=== PATIENT | male | born 1965 | race Caucasian/White ===

== ENCOUNTER 2016-07-16 09:45 | Emergency (ER) | payer OTHER ==
[2016-07-16 10:08] VITALS: TEMP 97.6; BMI 27.8
[2016-07-16] MEDS ORDERED: chlordiazePOXIDE HCL 25 MG CAPSULE PO ONE (10:12)
[2016-07-16] MEDS ORDERED: SODIUM CHLORIDE 1,000 ML IV ONE (10:12)
[2016-07-16] MEDS ORDERED: chlordiazePOXIDE HCL 25 MG CAPSULE ONE (10:18)
--- NOTE | 2016-07-16 10:19 | PDOC ---
History of Present Illness - General Chief Complaint: Substance Abuse Stated Complaint: ALCOHOL WITHDRAWAL Time Seen by Provider: 07/16/16 09:56 History Source: Patient Exam Limitations: No Limitations - History of Present Illness Initial Comments: 07/16/16 10:13 51y M hx of hl,htn, etoh abuse presents with feeling 'edgy' and palpitations since last night. pt states since last night, he has been feeling alittle edgy and anxious, associated with mild palpitations. he went to his neighbor for help who called EMS. The patient deniese any cp, dizziness, sob, abd pain, back pain, leg swelling. pt does endorse having a cough every morning he attributes to his sinuses that clears up after he coughs once or twice. Pt states he coughed once and vomited this morning which sometimes happens - he denies any nausea currently. Pt states he typically drinks 1-2pts vodka daily, and yesterday he had about 1/2-1pt. This morning he thought his edgyness/palps were due to etoh so he drank a few shots, but states it didnt help him very much. pt denies any hematemesis, urinary symptoms, diarrhea, melena, bpr, ROE. pt declines detox pt denies drinking any other recreational drugs p[facility] Past History - Past Medical History Allergies/Adverse Reactions: Allergies Allergy/AdvReac Type Severity Reaction Status Date / Time halothane Allergy Unknown Verified 07/16/16 09:58 Home Medications: Ambulatory Orders Atorvastatin Ca [Lipitor] 10 mg PO DAILY 02/16/14 Carvedilol [Coreg -] 25 mg PO DAILY 02/16/14 Cetirizine HCl [Zyrtec -] 10 mg PO DAILY PRN 02/16/14 Anemia: No Asthma: No Cancer: No Cardiac Disorders: No CVA: No COPD: No CHF: No Dementia: No Diabetes: No GI Disorders: Yes Disorders: Yes HTN: Yes Hypercholesterolemia: Yes Kidney Stones: No Liver Disease: No Psychiatric Problems: Yes (CHRONIC ALCOHOLISM) Suicide Attempt (Hx): No Seizures: No Thyroid Disease: No - Surgical History Abdominal Surgery: Yes (german hernia repair x 2 ) Appendectomy: No Cardiac Surgery: No Cholecystectomy: No Lung Surgery: No Neurologic Surgery: No Orthopedic Surgery: No - Reproductive History Testicular Surgery: No - Psycho/Social/Smoking Cessation Hx Anxiety: Yes Suicidal Ideation: No Smoking History: Current every day smoker Have you smoked in the past 12 months: Yes Number of Cigarettes Smoked Daily: 20 Cigars Per Day: 0 Information on smoking cessation initiated: Yes 'Breaking Loose' booklet given: 03/23/14 Hx Alcohol Use: Yes Drug/Substance Use Hx: No Substance Use Type: Alcohol Hx Substance Use Treatment: No Review of Systems - Review of Systems Able to Perform ROS?: Yes Comments:: 07/16/16 10:16 Constitutional - no reported Fever, Chills, weakness, HEENT: no reported vision changes, sore throat Respiratory: +cough no reported sob, hemoptysis Cardiac: + palpitations, no reported chest pain, light headedness, leg swelling Abd/GI: +vomited no reported abd pain, nausea, blood per rectum, melena, diarrhea : no reported dysuria, frequency, discharge Musculskelatal - no reported back pain, joint swelling skin - no reported bruising, erythema, rash neurological: no reported headache, numbness, focal weakness, tingling, ataxia, weakness hematologic: no reported anemia, easy bruising, easy bleeding *Physical Exam - Vital Signs Last Vital Signs Temp Pulse Resp BP Pulse Ox 97.6 F 105 H 16 156/95 97 07/16/16 09:55 07/16/16 09:55 07/16/16 09:55 07/16/16 09:55 07/16/16 09:55 - Physical Exam Comments: 07/16/16 10:17 GENERAL: The patient is awake, alert, and fully oriented, Nontoxic - in no acute distress. HEAD: Normocephalic, atraumatic. EYES: extraocular movements intact, sclera anicteric, conjunctiva clear. scar over L eye with mild ptosis (chronic for patient) ENT: Normal voice, minimal tongue fasciulations NECK: Normal range of motion, supple LUNGS: Breath sounds equal, clear to auscultation bilaterally. No wheezes, no rhonchi, no rales. HEART: slightly tachycardic, normal S1 and S2 without murmur, rub or gallop. ABDOMEN: Soft, nontender, normoactive bowel sounds. No guarding, no rebound. . No CVA tenderness EXTREMITIES: Normal range of motion, no edema. No clubbing or cyanosis. No cords, erythema, or tenderness. NEUROLOGICAL: No facial assymetry, Normal speech, moving all 4 extremities spontaneously and symmetrically PSYCH: Normal mood, normal affect. SKIN: Warm, Dry, normal turgor, Heart Score/ECG Review - ECG Impressions Comment:: 07/16/16 11:57 Twelve-lead EKG was performed and reviewed by me. There is normal sinus rhythm with a normal rate. rate of 76 Incomplete RBBB There is abnormal R wave progression q waves in inferior leads ED Treatment Course - LABORATORY CBC & Chemistry Diagram: 07/16/16 10:25 07/16/16 10:25 - RADIOLOGY Radiology Studies Ordered: Category Date Time Status CHEST PA & LAT [RAD] Stat Radiology 07/16/16 10:12 Ordered Medical Decision Making - Medical Decision Making 07/16/16 10:18 51y M hx of htn, hl, etoh abuse presents feeling anxous with palpitations, some coughing this morning which is chronic for the patient and 1 episode of post tuffive emesis without any cp, abd pain, current nausea. pts vitals noted for mild tachycardia and pt has minimal tongue fasiculations suspect possible early withdrawal will give librium will give fluisds will ck cbc cmp ekg, to r/o anemia, metabolic dernagement, arrythmia cxr to r/o pna 07/16/16 12:23 labs reviewed noted for mildly low mag -= was repleted cxr negative for acute infiltrate pts HR improved currently without signs of withdrawl pt again declines detox will d/c the pt to fu with his pmd return precautions were discussed I discussed the physical exam findings, ancillary test results and final diagnoses with the patient. I answered all of the patient's questions. The patient was satisfied with the care received and felt comfortable with the discharge plan and treatment plan. The patient will call their primary care physician within 24 hours to arrange follow-up and will return to the Emergency Department with any new, persistent or worsening symptoms. *DC/Admit/Observation/Transfer Diagnosis at time of Disposition: Hypomagnesemia Chronic alcoholism Qualifiers: Substance use status: uncomplicated Qualified Code(s): F10.20 - Alcohol dependence, uncomplicated - Discharge Dispostion Disposition: HOME Condition at time of disposition: Improved Admit: No - Referrals Referrals: Lawrence Soria MD [Primary Care Provider] - - Patient Instructions Printed Discharge Instructions: DI for Alcohol Abuse Additional Instructions: Return to the emergency department immediately with ANY new, persistent or worsening symptoms. Make sure you are eating regularly If you are interested in alcohol detox, you may contact: for more details You MUST call and follow up with your doctor within 2-3 days for further evaluation of your symptoms. Results were discussed with you. Please make sure your doctor reviews the results of your emergency evaluation. Print Language: KIS[place]HILI
[2016-07-16 10:53] LABS: BASOPHIL 2.7 % (0-2.0); EOSINOPHIL 2.8 % (0-4.5); MCH 32.8 pg (25.7-33.7); MCHC 34.7 g/dl (32.0-35.9); MEAN CELL VOLUME 94.4 fl (80-96); MEAN PLT VOLUME 8.9 fl (7.5-11.1); NEUTROPHILS 70.8 % (42.8-82.8); PLATELET COUNT 140 K/MM3 (134-434); RDW 13.5 % (11.9-15.9); WHITE BLOOD COUNT 6.4 K/mm3 (4.0-10.0)
[2016-07-16 10:58] LABS: INR 1.01 (0.82-1.09); PROTHROMBIN TIME (PATIENT) 11.3 SEC (10.2-13.0)
[2016-07-16 11:02] LABS: ALBUMIN 4.4 g/dl (3.5-5.0); ALK PHOS 85 U/L (32-92); ANION GAP 14 (8-16); CALCIUM 9.7 mg/dl (8.4-10.2); CO2 24 mmol/L (22-28); CREATININE 0.9 mg/dl (0.6-1.3); GLUCOSE,RANDOM 118 mg/dl (74-106); MAGNESIUM 1.6 mg/dL (1.8-2.4); SGOT/AST 89 U/L (10-42); SGPT/ALT 128 U/L (10-40); TOT PROT 7.1 g/dl (6.4-8.3)
[2016-07-16] MEDS ORDERED: MAGNESIUM SULF 50% (8.12 MEQ/2 ML-1 GM VIAL) IVPB ONE (11:09)
[2016-07-16 13:25] VITALS: BP 132/90; PULSE 75
--- NOTE | 2016-07-16 18:40 | EKG ---
Test Reason : Blood Pressure : / mmHG Vent. Rate : 076 BPM Atrial Rate : 076 BPM P-R Int : 152 ms QRS Dur : 098 ms QT Int : 380 ms P-R-T Axes : 051 -21 033 degrees QTc Int : 427 ms NORMAL SINUS RHYTHM INCOMPLETE RIGHT BUNDLE BRANCH BLOCK INFERIOR INFARCT , AGE UNDETERMINED ABNORMAL ECG NO PREVIOUS ECGS AVAILABLE Confirmed by ANDREA HANSEN MD ([id number]) on 07/16/2016 6:40:09 PM Referred By: LORENZA Confirmed By:ANDREA HANSEN MD
== END 2016-07-16 13:24 | disposition home or self-care (01) ==
LOC: FER 09:45
PROC: 3E033GC Introduction of Other Therapeutic Substance into Peripheral Vein, Percutaneous Approach (ICD-10-PCS; principal; 2016-07-16)
PROC: 3E0337Z Introduction of Electrolytic and Water Balance Substance into Peripheral Vein, Percutaneous Approach (ICD-10-PCS; 2016-07-16)
DX: E83.42 Hypomagnesemia (principal); F10.20 Alcohol dependence, uncomplicated; I10 Essential (primary) hypertension; E78.00 Pure hypercholesterolemia, unspecified; F17.210 Nicotine dependence, cigarettes, uncomplicated
CPT/HCPCS: 36415; 71020-TC; 80053; 83735; 85025; 85610; 93005; 96361; 96374; 99285-25

== ENCOUNTER 2016-07-29 13:31 | Inpatient (IN) | payer OTHER ==
[2016-07-29 14:32] VITALS: BMI 27.6
--- NOTE | 2016-07-29 17:31 | HP ---
CIWA Score - CIWA Score Nausea/Vomitin Muscle Tremors: 4-Moderate,w/Arms Extend Anxiety: 4-Mod. Anxious/Guarded Agitation: 4-Moderately Restless Paroxysmal Sweats: 3 Orientation: 0-Oriented Tacttile Disturbances: 0-None Auditory Disturbances: 0-None Visual Disturbances: 0-None Headache: 0-None Present CIWA-Ar Total Score: 17 Admission ROS BHS - HPI Chief Complaint: Withdrawal sx. Allergies/Adverse Reactions: Allergies Allergy/AdvReac Type Severity Reaction Status Date / Time halothane Allergy Unknown Verified 07/29/16 16:39 History of Present Illness: 51 y/o man with a long hx. of alcoholism is admitted for detox. Pt. has been in previous detox,reports 1 1/2 yr. sober. Exam Limitations: No Limitations - Ebola screening Have you traveled outside of the country in the last 21 days: No Have you had contact with anyone from an Ebola affected area: No Have you been sick,other than usual withdrawal symptoms: No Do you have a fever: No - Review of Systems Constitutional: No Symptoms Reported EENT: reports: No Symptoms Reported Respiratory: reports: Cough Cardiac: reports: No Symptoms Reported GI: reports: Nausea, Abdominal cramping : reports: No Symptoms Reported Musculoskeletal: reports: No Symptoms Reported Integumentary: reports: Sweating Neuro: reports: Tremors Endocrine: reports: No Symptoms Reported Hematology: reports: No Symptoms Reported Psychiatric: reports: No Sypmtoms Reported Other Systems: Reviewed and Negative Patient History - Patient Medical History Hx Anemia: No Hx Asthma: No Hx Chronic Obstructive Pulmonary Disease (COPD): No Hx Cancer: No Hx Cardiac Disorders: No Hx Congestive Heart Failure: No Hx Hypertension: Yes (on coreg) Hx Hypercholesterolemia: Yes (atorvastatin ) Hx Pacemaker: No HX Cerebrovascular Accident: No Hx Seizures: No Hx Dementia: No Hx Diabetes: No Hx Gastrointestinal Disorders: Yes (acid reflux) Hx Liver Disease: No Hx Genitourinary Disorders: No Hx Sexually Transmitted Disorders: No Hx Renal Disease (ESRD): No Hx Thyroid Disease: No Hx Human Immunodeficiency Virus (HIV): No Hx Hepatitis C: No Hx Depression: No Hx Suicide Attempt: No Hx Bipolar Disorder: No Hx Schizophrenia: No - Patient Surgical History Past Surgical History: Yes Hx Neurologic Surgery: No Hx Cataract Extraction: No Hx Cardiac Surgery: No Hx Lung Surgery: No Hx Breast Surgery: No Hx Breast Biopsy: No Hx Abdominal Surgery: Yes (german hernia repair x 4- last 20) Hx Appendectomy: No Hx Cholecystectomy: No Hx Genitourinary Surgery: No Hx Section: No Hx Orthopedic Surgery: No Hx Hysterectomy: No Other Surgical History: left eye surgery at 5yrs Anesthesia Reaction: Yes (Halothane) - PPD History Previous Implant?: Yes Documented Results: Negative w/proof Implanted On Prior [facility] Admission?: Yes Date: 02/18/14 Results: 0 mm PPD to be Administered?: Yes - Smoking Cessation Smoking history: Current every day smoker Have you smoked in the past 12 months: Yes Aproximately how many cigarettes per day: 20 Cigars Per Day: 0 Hx Chewing Tobacco Use: No Initiated information on smoking cessation: Yes 'Breaking Loose' booklet given: 07/29/16 - Substance & Tx. History Hx Alcohol Use: Yes Hx Substance Use: No Substance Use Type: Alcohol Hx Substance Use Treatment: Yes (Detox) - Substances Abused Alcohol Route: Oral Frequency: Daily Amount used: vodka- 2pts Age of first use: 21 Date of Last Use: 07/28/16 Admission Physical Exam BHS - Vital Signs Vital Signs: Vital Signs - 24 hr 07/29/16 14:28 Temperature 96.6 F L Pulse Rate 99 H Respiratory 20 Rate Blood Pressure 167/116 BHS Breath Alcohol Content Breath Alcohol Content: 0 Urine Drug Screen - Results Drug Screen Negative: No Urine Drug Screen Results: BZO-Benzodiazepines
[2016-07-29] MEDS ORDERED: MAGNESIUM CITRATE 300 ML BOTTLE PO PRN (17:42)
[2016-07-29] MEDS ORDERED: MAG HYDROX/AL HYDROX/SIMETH 30 ML UNIT-DOSE CUP PO PRN (17:42)
[2016-07-29] MEDS ORDERED: ACETAMINOPHEN 325 MG TABLET (FP) PO PRN (17:42)
[2016-07-29] MEDS ORDERED: MENTHOL/PHENOL 1 EACH UD MM PRN (17:42)
[2016-07-29] MEDS ORDERED: hydrOXYzine PAMOATE 50 MG CAPSULE (FP) PO PRN (17:42)
[2016-07-29] MEDS ORDERED: MAGNESIUM HYDROX 2400MG/30ML ORAL SUSPENSION 30 ML CUP PO PRN (17:42)
[2016-07-29] MEDS ORDERED: NICOTINE POLACRILEX 2 MG GUM BC PRN (17:42)
[2016-07-29] MEDS ORDERED: guaiFENesin/D-METHORPHAN HB 10 ML UNIT-DOSE CUPS PO PRN (17:42)
[2016-07-29] MEDS ORDERED: diphenhydrAMINE HCL 50 MG CAPSULE PO PRN (17:42)
[2016-07-29] MEDS ORDERED: LOPERAMIDE HCL 2 MG CAPSULE PO PRN (17:42)
[2016-07-29] MEDS ORDERED: P-EPHED 60MG/TRIPROLIDI 2.5MG TABLET PO PRN (17:42)
[2016-07-29] MEDS ORDERED: chlordiazePOXIDE HCL 25 MG CAPSULE PO ONE (17:42)
[2016-07-29] MEDS ORDERED: IBUPROFEN 400 MG TABLET (FP) PO PRN (17:42)
[2016-07-29] MEDS ORDERED: chlordiazePOXIDE HCL 25 MG CAPSULE PO PRN (17:42)
[2016-07-29] MEDS: NICOTINE 21 MG/24 HOURS TOPICAL PATCH TD SCH (19:20)
[2016-07-29] MEDS: THIAMINE HCL 100 MG TABLET (FP) PO SCH (22:18)
[2016-07-29] MEDS: chlordiazePOXIDE HCL 25 MG CAPSULE PO SCH (22:18)
[2016-07-29] MEDS: ATORVASTATIN CA 10 MG TABLET (FP) PO SCH (22:19)
[2016-07-29] MEDS: CARVEDILOL 25 MG TABLET (FP) PO SCH (22:19)
[2016-07-30] MEDS: chlordiazePOXIDE HCL 25 MG CAPSULE PO SCH ×4 (05:32→22:16)
[2016-07-30] MEDS: NICOTINE 21 MG/24 HOURS TOPICAL PATCH TD SCH (10:20)
[2016-07-30] MEDS: CARVEDILOL 25 MG TABLET (FP) PO SCH ×2 (10:20→22:17)
[2016-07-30] MEDS: PRENATAL VITAMINS W/ FOLIC ACID TABLET (FP) PO SCH (10:20)
[2016-07-30 10:36] LABS: ALK PHOS 112 U/L (45-117); BILIRUBIN,TOTAL 1.5 mg/dL (0.2-1.0); MCH 32.5 pg (25.7-33.7); MCHC 33.4 g/dl (32.0-35.9); MEAN CELL VOLUME 97.2 fl (80-96); MEAN PLT VOLUME 9.9 fl (7.5-11.1); PLATELET COUNT 125 K/MM3 (134-434); RDW 14.3 % (11.9-15.9); SGOT/AST 157 U/L (15-37); SGPT/ALT 157 U/L (12-78); TOT PROT 7.8 g/dl (6.4-8.2); WHITE BLOOD COUNT 6.2 K/mm3 (4.0-10.0)
[2016-07-30 10:38] LABS: ALBUMIN 4.6 g/dl (3.4-5.0); ANION GAP 9 (8-16); CALCIUM 9.8 mg/dL (8.5-10.1); CO2 32 mmol/L (21-32); GLUCOSE,RANDOM 128 mg/dL (74-106)
--- NOTE | 2016-07-30 11:26 | PN ---
[facility] CIWA - CIWA Score Nausea/Vomitin-No Nausea/No Vomiting Muscle Tremors: 4-Moderate,w/Arms Extend Anxiety: 4-Mod. Anxious/Guarded Agitation: 4-Moderately Restless Paroxysmal Sweats: 1-Minimal Palms Moist Orientation: 0-Oriented Tacttile Disturbances: 3-Moderate Itch/Numb/Burn Auditory Disturbances: 0-None Visual Disturbances: 0-None Headache: 0-None Present CIWA-Ar Total Score: 16 BHS Progress Note (SOAP) Subjective: ANXIETY,TREMORS,SWEATS. Objective: 07/30/16 11:25 Vital Signs Temperature 97.1 F L 07/30/16 10:58 Pulse Rate 75 07/30/16 10:58 Respiratory Rate 20 07/30/16 10:58 Blood Pressure 131/93 07/30/16 10:58 O2 Sat by Pulse Oximetry (%) Laboratory Last Values WBC 6.2 K/mm3 (4.0-10.0) D 07/30/16 07:00 RBC 5.10 M/mm3 (4.00-5.60) 07/30/16 07:00 Hgb 16.6 GM/dL (11.7-16.9) D 07/30/16 07:00 Hct 49.6 % (35.4-49) H D 07/30/16 07:00 MCV 97.2 fl (80-96) H 07/30/16 07:00 MCHC 33.4 g/dl (32.0-35.9) 07/30/16 07:00 RDW 14.3 % (11.9-15.9) 07/30/16 07:00 Plt Count 125 K/MM3 (134-434) L D 07/30/16 07:00 MPV 9.9 fl (7.5-11.1) 07/30/16 07:00 Sodium 137 mmol/L (136-145) 07/30/16 07:00 Potassium 4.2 mmol/L (3.5-5.1) 07/30/16 07:00 Chloride 96 mmol/L (98-107) L 07/30/16 07:00 Carbon Dioxide 32 mmol/L (21-32) 07/30/16 07:00 Anion Gap 9 (8-16) 07/30/16 07:00 BUN 18 mg/dL (7-18) D 07/30/16 07:00 Creatinine 1.0 mg/dL (0.7-1.3) D 07/30/16 07:00 Creat Clearance w eGFR > 60 (>60) 07/30/16 07:00 Random Glucose 128 mg/dL (74-106) H 07/30/16 07:00 Calcium 9.8 mg/dL (8.5-10.1) 07/30/16 07:00 Total Bilirubin 1.5 mg/dL (0.2-1.0) H 07/30/16 07:00 AST 157 U/L (15-37) H 07/30/16 07:00 ALT 157 U/L (12-78) H D 07/30/16 07:00 Alkaline Phosphatase 112 U/L (45-117) 07/30/16 07:00 Total Protein 7.8 g/dl (6.4-8.2) 07/30/16 07:00 Albumin 4.6 g/dl (3.4-5.0) 07/30/16 07:00 Assessment: 07/30/16 11:25 WITHDRAWAL SX Plan: CONTINUE DETOX
[2016-07-30 12:47] LABS: HIV 1 & 2 AB NEGATIVE; HIV 1 AGp24 NEGATIVE
[2016-07-30 14:20] LABS: URINE APPEARANCE CLEAR; URINE BILIRUBIN NEGATIVE (NEGATIVE); URINE BLOOD NEGATIVE (NEGATIVE); URINE GLUCOSE (UA) NEGATIVE (NEGATIVE); URINE KETONE TRACE (NEGATIVE); URINE LEUK ESTERASE NEGATIVE (NEGATIVE); URINE NITRITE NEGATIVE (NEGATIVE); URINE UROBILINOGEN 4.0 E.U/dl E.U./dl (0.2-1.0)
--- NOTE | 2016-07-30 14:24 | CONSULT ---
[facility] Psychiatric Consult - Data Date of interview: 07/30/16 Admission source: [facility] Identifying data: Readmision to [facility] for this 51 y/o Caucaian male seeking detox treatment on for alcohol and nicotine dependence.Patient is single without children,domiciled (lives with his parents),unemployed and dependent on relatives for financial support. Substance Abuse History: - Smoking Cessation. Smoking history: Current every day smoker. Have you smoked in the past 12 months: Yes. Aproximately how many cigarettes per day: 20. Cigars Per Day: 0. Hx Chewing Tobacco Use: No. Initiated information on smoking cessation: Yes. 'Breaking Loose' booklet given : 07/29/16. - Substance & Tx. History. Hx Alcohol Use: Yes. Hx Substance Use : No. Substance Use Type: Alcohol. Hx Substance Use Treatment: Yes (Detox). - Substances Abused. Alcohol. Route: Oral. Frequency: Daily. Amount used : vodka- 2pts. Age of first use: 21. Date of Last Use: 07/28/16. Confirmed by patient in this session. Medical History: Gerd,hypercholesterolemia,hypertension and a history of past surgeries (eye surgery at age [age] and bilateral herniorraphy x 2). Psychiatric History: Patient denies. Physical/Sexual Abuse/Trauma History: Patient denies. Additional Comment: Urine Drug Screen Results: BZO-Benzodiazepines.Noted. Mental Status Exam - Mental Status Exam Alert and Oriented to: Time, Place, Person Cognitive Function: Good Patient Appearance: Unkempt, Disheveled Mood: Nervous, Withdrawn, Apprehensive Affect: Flat Patient Behavior: Passive, Fatigued, Appropriate, Cooperative Speech Pattern: Clear Voice Loudness: Normal Thought Process: Goal Oriented Thought Disorder: Not Present Hallucinations: Denies Suicidal Ideation: Denies Homicidal Ideation: Denies Appetite: Fair (while on benadryl at bedtime) Muscle strength/Tone: Normal Gait/Station: Normal Psychiatric Findings - Problem List ([place] 1, 2,3) (1) Chronic alcoholism Current Visit: Yes Status: Acute Qualifiers: Substance use status: uncomplicated Qualified Code(s): F10.20 - Alcohol dependence, uncomplicated (2) Nicotine dependence Current Visit: Yes Status: Acute (3) Alcohol-induced mood disorder Current Visit: Yes Status: Suspected (4) H/O gastroesophageal reflux (GERD) Current Visit: Yes Status: Acute (5) HTN (hypertension) Current Visit: Yes Status: Chronic (6) Hx of unilateral nephrectomy Current Visit: No Status: Chronic (7) Hyperlipemia Current Visit: Yes Status: Chronic (8) Strabismus Current Visit: Yes Status: Chronic - Initial Treatment Plan Initial Treatment Plan: Psychoeducation.Detoxification.Observation.
[2016-07-30 14:32] LABS: URINE PROTEIN 2+ (NEGATIVE)
[2016-07-30 14:33] LABS: URINE COLOR DK YELLOW
[2016-07-30 14:38] LABS: URINE MUCUS MANY; URINE RBC <1 /hpf (0-3); URINE WBC 1 /hpf (3-5)
--- NOTE | 2016-07-30 15:01 | EKG ---
Test Reason : Blood Pressure : / mmHG Vent. Rate : 079 BPM Atrial Rate : 079 BPM P-R Int : 166 ms QRS Dur : 102 ms QT Int : 384 ms P-R-T Axes : 050 -16 034 degrees QTc Int : 440 ms NORMAL SINUS RHYTHM INCOMPLETE RIGHT BUNDLE BRANCH BLOCK INFERIOR INFARCT (CITED ON OR BEFORE 16-JUL-2016) ABNORMAL ECG WHEN COMPARED WITH ECG OF 16-JUL-2016 10:31, NO SIGNIFICANT CHANGE WAS FOUND Confirmed by ZEKE SAAVEDRA MD ([id number]) on 07/30/2016 3:00:27 PM Referred By: Confirmed By:ZEKE SAAVEDRA MD
[2016-07-30] MEDS: THIAMINE HCL 100 MG TABLET (FP) PO SCH (22:16)
[2016-07-30] MEDS: ATORVASTATIN CA 10 MG TABLET (FP) PO SCH (22:17)
[2016-07-31] MEDS: chlordiazePOXIDE HCL 25 MG CAPSULE PO SCH ×3 (05:47→17:28)
--- NOTE | 2016-07-31 10:22 | PN ---
[facility] CIWA - CIWA Score Nausea/Vomitin-No Nausea/No Vomiting Muscle Tremors: 4-Moderate,w/Arms Extend Anxiety: 4-Mod. Anxious/Guarded Agitation: 4-Moderately Restless Paroxysmal Sweats: 1-Minimal Palms Moist Orientation: 0-Oriented Tacttile Disturbances: 3-Moderate Itch/Numb/Burn Auditory Disturbances: 0-None Visual Disturbances: 0-None Headache: 0-None Present CIWA-Ar Total Score: 16 BHS Progress Note (SOAP) Subjective: TREMORS,SWEATS,ANXIETY. Objective: 07/31/16 10:21 Vital Signs Temperature 97.7 F 07/31/16 09:37 Pulse Rate 74 07/31/16 09:37 Respiratory Rate 18 07/31/16 09:37 Blood Pressure 124/93 07/31/16 09:37 O2 Sat by Pulse Oximetry (%) Laboratory Last Values WBC 6.2 K/mm3 (4.0-10.0) D 07/30/16 07:00 RBC 5.10 M/mm3 (4.00-5.60) 07/30/16 07:00 Hgb 16.6 GM/dL (11.7-16.9) D 07/30/16 07:00 Hct 49.6 % (35.4-49) H D 07/30/16 07:00 MCV 97.2 fl (80-96) H 07/30/16 07:00 MCHC 33.4 g/dl (32.0-35.9) 07/30/16 07:00 RDW 14.3 % (11.9-15.9) 07/30/16 07:00 Plt Count 125 K/MM3 (134-434) L D 07/30/16 07:00 MPV 9.9 fl (7.5-11.1) 07/30/16 07:00 Sodium 137 mmol/L (136-145) 07/30/16 07:00 Potassium 4.2 mmol/L (3.5-5.1) 07/30/16 07:00 Chloride 96 mmol/L (98-107) L 07/30/16 07:00 Carbon Dioxide 32 mmol/L (21-32) 07/30/16 07:00 Anion Gap 9 (8-16) 07/30/16 07:00 BUN 18 mg/dL (7-18) D 07/30/16 07:00 Creatinine 1.0 mg/dL (0.7-1.3) D 07/30/16 07:00 Creat Clearance w eGFR > 60 (>60) 07/30/16 07:00 Random Glucose 128 mg/dL (74-106) H 07/30/16 07:00 Calcium 9.8 mg/dL (8.5-10.1) 07/30/16 07:00 Total Bilirubin 1.5 mg/dL (0.2-1.0) H 07/30/16 07:00 AST 157 U/L (15-37) H 07/30/16 07:00 ALT 157 U/L (12-78) H D 07/30/16 07:00 Alkaline Phosphatase 112 U/L (45-117) 07/30/16 07:00 Total Protein 7.8 g/dl (6.4-8.2) 07/30/16 07:00 Albumin 4.6 g/dl (3.4-5.0) 07/30/16 07:00 Urine Color Dk yellow 07/30/16 09:50 Urine Appearance Clear 07/30/16 09:50 Urine pH 5.0 (5.0-8.0) 07/30/16 09:50 Ur Specific [place] 1.032 (1.001-1.035) 07/30/16 09:50 Urine Protein 2+ (NEGATIVE) H 07/30/16 09:50 Urine Glucose (UA) Negative (NEGATIVE) 07/30/16 09:50 Urine Ketones Trace (NEGATIVE) H 07/30/16 09:50 Urine Blood Negative (NEGATIVE) 07/30/16 09:50 Urine Nitrite Negative (NEGATIVE) 07/30/16 09:50 Urine Bilirubin Negative (NEGATIVE) 07/30/16 09:50 Urine Urobilinogen 4.0 e.u/dl E.U./dl (0.2-1.0) 07/30/16 09:50 Ur Leukocyte Esterase Negative (NEGATIVE) 07/30/16 09:50 Urine RBC <1 /hpf (0-3) 07/30/16 09:50 Urine WBC 1 /hpf (3-5) 07/30/16 09:50 Ur Epithelial Cells Rare /hpf (FEW) 07/30/16 09:50 Urine Mucus Many 07/30/16 09:50 RPR Titer Nonreactive (NONREACTIVE) 07/30/16 07:00 Hepatitis C Antibody 0.1 s/co ratio (0.0-0.9) 07/29/16 07:00 HIV 1&2 Antibody Screen Negative 07/30/16 07:00 HIV P24 Antigen Negative 07/30/16 07:00 Assessment: 07/31/16 10:22 WITHDRAWAL SX Plan: CONTINUE DETOX
[2016-07-31] MEDS: CARVEDILOL 25 MG TABLET (FP) PO SCH ×2 (10:26→22:16)
[2016-07-31] MEDS: PRENATAL VITAMINS W/ FOLIC ACID TABLET (FP) PO SCH (10:26)
[2016-07-31] MEDS: NICOTINE 21 MG/24 HOURS TOPICAL PATCH TD SCH (10:26)
[2016-07-31] MEDS ORDERED: chlordiazePOXIDE HCL 25 MG CAPSULE PO ONE (14:00)
[2016-07-31] MEDS: chlordiazePOXIDE 5 MG CAPSULE PO SCH (22:16)
[2016-07-31] MEDS: ATORVASTATIN CA 10 MG TABLET (FP) PO SCH (22:16)
[2016-07-31] MEDS: THIAMINE HCL 100 MG TABLET (FP) PO SCH (22:16)
[2016-08-01] MEDS: chlordiazePOXIDE 5 MG CAPSULE PO SCH ×3 (05:46→17:47)
[2016-08-01] MEDS: CARVEDILOL 25 MG TABLET (FP) PO SCH ×2 (10:25→22:19)
[2016-08-01] MEDS: NICOTINE 21 MG/24 HOURS TOPICAL PATCH TD SCH (10:25)
[2016-08-01] MEDS: PRENATAL VITAMINS W/ FOLIC ACID TABLET (FP) PO SCH (10:25)
[2016-08-01 11:01] LABS: ALK PHOS 92 U/L (45-117); SGOT/AST 231 U/L (15-37); SGPT/ALT 247 U/L (12-78)
--- NOTE | 2016-08-01 11:04 | PN ---
BHS Progress Note (SOAP) Subjective: ANXIETY.SLIGHT TREMORS, TEARY RED EYES. DENIES PUS DRAINAGE.--HX ALLERGY AND TAKES ZYRTEC. Objective: 08/01/16 11:01 Vital Signs Temperature 97.0 F L 08/01/16 09:38 Pulse Rate 69 08/01/16 09:38 Respiratory Rate 18 08/01/16 09:38 Blood Pressure 120/85 08/01/16 09:38 O2 Sat by Pulse Oximetry (%) NO DRAINAGE NOTED. VERY MINIMAL REDNESS. Assessment: 08/01/16 11:03 WITHDRAWAL SX Plan: CONTINUE DETOX VISINE-A AND CLARITIN DIRECTED. ZYRTEC NONFORMULARY.
[2016-08-01] MEDS ORDERED: PNEUMOC 13-VAL CONJ-DIP CRM/PF 0.5 ML DISP.SYRIN IM ONE (12:00)
[2016-08-01] MEDS ORDERED: PNEUMOCOCCAL 23 VACCINE 0.5 ML VIAL IM ONE (12:00)
[2016-08-01] MEDS: LORATADINE 10 MG TABLET PO SCH (12:19)
[2016-08-01] MEDS: NAPHAZOLINE/PHENIRAMINE OPHTHALMIC 15 ML BOTTLE OU SCH ×2 (15:25→22:20)
[2016-08-01] MEDS: THIAMINE HCL 100 MG TABLET (FP) PO SCH (22:19)
[2016-08-01] MEDS: ATORVASTATIN CA 10 MG TABLET (FP) PO SCH (22:19)
[2016-08-01] MEDS: chlordiazePOXIDE HCL 10 MG CAPSULE PO SCH (22:20)
[2016-08-02] MEDS: chlordiazePOXIDE HCL 10 MG CAPSULE PO SCH (05:54)
[2016-08-02] MEDS: NAPHAZOLINE/PHENIRAMINE OPHTHALMIC 15 ML BOTTLE OU SCH (05:56)
[2016-08-02] MEDS: PRENATAL VITAMINS W/ FOLIC ACID TABLET (FP) PO SCH (09:08)
[2016-08-02] MEDS: CARVEDILOL 25 MG TABLET (FP) PO SCH (09:09)
[2016-08-02] MEDS: NICOTINE 21 MG/24 HOURS TOPICAL PATCH TD SCH (09:09)
[2016-08-02] MEDS: LORATADINE 10 MG TABLET PO SCH (09:09)
--- NOTE | 2016-08-02 09:47 | DS ---
[facility] Detox Discharge Summary Admission Date: 07/29/16 Discharge Date: 08/02/16 - History Present History: Alcohol Dependence Additional Comments: DETOX COMPLETED.ALERT O X 3. NAD. PT HAS PMD IN [place] AND [employer] IN [place] AND HAS BEEN KEEPING HIS MEDICAL APPOINTMENTS PER PT. PT WAS REMINDED TO F/U NECESSARY FOR MEDICAL CARE. Pertinent Past History: HTN HYPERLIPIDEMIA GERD STRABISMUS - Physical Exam Results Vital Signs: Vital Signs Temperature 97.3 F L 08/02/16 06:51 Pulse Rate 70 08/02/16 06:51 Respiratory Rate 18 08/02/16 06:51 Blood Pressure 117/84 08/02/16 06:51 O2 Sat by Pulse Oximetry (%) Pertinent Admission Physical Exam Findings: WITHDRAWAL SX Laboratory Last Values WBC 6.2 K/mm3 (4.0-10.0) D 07/30/16 07:00 RBC 5.10 M/mm3 (4.00-5.60) 07/30/16 07:00 Hgb 16.6 GM/dL (11.7-16.9) D 07/30/16 07:00 Hct 49.6 % (35.4-49) H D 07/30/16 07:00 MCV 97.2 fl (80-96) H 07/30/16 07:00 MCHC 33.4 g/dl (32.0-35.9) 07/30/16 07:00 RDW 14.3 % (11.9-15.9) 07/30/16 07:00 Plt Count 125 K/MM3 (134-434) L D 07/30/16 07:00 MPV 9.9 fl (7.5-11.1) 07/30/16 07:00 Sodium 137 mmol/L (136-145) 07/30/16 07:00 Potassium 4.2 mmol/L (3.5-5.1) 07/30/16 07:00 Chloride 96 mmol/L (98-107) L 07/30/16 07:00 Carbon Dioxide 32 mmol/L (21-32) 07/30/16 07:00 Anion Gap 9 (8-16) 07/30/16 07:00 BUN 18 mg/dL (7-18) D 07/30/16 07:00 Creatinine 1.0 mg/dL (0.7-1.3) D 07/30/16 07:00 Creat Clearance w eGFR > 60 (>60) 07/30/16 07:00 Random Glucose 128 mg/dL (74-106) H 07/30/16 07:00 Calcium 9.8 mg/dL (8.5-10.1) 07/30/16 07:00 Total Bilirubin 1.5 mg/dL (0.2-1.0) H 07/30/16 07:00 AST 231 U/L (15-37) H D 08/01/16 07:00 ALT 247 U/L (12-78) H D 08/01/16 07:00 Alkaline Phosphatase 92 U/L (45-117) 08/01/16 07:00 Total Protein 7.8 g/dl (6.4-8.2) 07/30/16 07:00 Albumin 4.6 g/dl (3.4-5.0) 07/30/16 07:00 Urine Color Dk yellow 07/30/16 09:50 Urine Appearance Clear 07/30/16 09:50 Urine pH 5.0 (5.0-8.0) 07/30/16 09:50 Ur Specific [place] 1.032 (1.001-1.035) 07/30/16 09:50 Urine Protein 2+ (NEGATIVE) H 07/30/16 09:50 Urine Glucose (UA) Negative (NEGATIVE) 07/30/16 09:50 Urine Ketones Trace (NEGATIVE) H 07/30/16 09:50 Urine Blood Negative (NEGATIVE) 07/30/16 09:50 Urine Nitrite Negative (NEGATIVE) 07/30/16 09:50 Urine Bilirubin Negative (NEGATIVE) 07/30/16 09:50 Urine Urobilinogen 4.0 e.u/dl E.U./dl (0.2-1.0) 07/30/16 09:50 Ur Leukocyte Esterase Negative (NEGATIVE) 07/30/16 09:50 Urine RBC <1 /hpf (0-3) 07/30/16 09:50 Urine WBC 1 /hpf (3-5) 07/30/16 09:50 Ur Epithelial Cells Rare /hpf (FEW) 07/30/16 09:50 Urine Mucus Many 07/30/16 09:50 RPR Titer Nonreactive (NONREACTIVE) 07/30/16 07:00 Hepatitis C Antibody 0.1 s/co ratio (0.0-0.9) 07/29/16 07:00 HIV 1&2 Antibody Screen Negative 07/30/16 07:00 HIV P24 Antigen Negative 07/30/16 07:00 - Treatment Hospital Course: Detox Protocol Followed, Detoxed Safely, Responded well, Discharged Condition Good, Rehab Referral Accepted Patient has Accepted a Rehab Referral to: [facility] - Medication Discharge Medications: Ambulatory Orders Atorvastatin Ca [Lipitor] 10 mg PO DAILY 02/16/14 Carvedilol [Coreg -] 25 mg PO BID 02/16/14 Cetirizine HCl [Zyrtec -] 10 mg PO DAILY PRN 02/16/14 Magnesium Oxide [Magnesium] 250 mg PO DAILY 07/29/16 - Diagnosis (1) H/O gastroesophageal reflux (GERD) Current Visit: Yes Status: Chronic (2) Nicotine dependence Current Visit: Yes Status: Acute Qualifiers: Nicotine product type: cigarettes Substance use status: in withdrawal Qualified Code(s): F17.213 - Nicotine dependence, cigarettes, with withdrawal (3) HTN (hypertension) Current Visit: Yes Status: Chronic Qualifiers: Hypertension type: essential hypertension Qualified Code(s): I10 - Essential (primary) hypertension (4) Hyperlipemia Current Visit: Yes Status: Chronic Qualifiers: Hyperlipidemia type: unspecified Qualified Code(s): E78.5 - Hyperlipidemia, unspecified (5) Strabismus Current Visit: Yes Status: Chronic (6) Alcohol-induced mood disorder Current Visit: Yes Status: Suspected (7) Hx of unilateral nephrectomy Current Visit: No Status: Resolved - AMA Did Patient Leave Against Medical Advice: No
[2016-08-02 10:00] VITALS: BP 128/70; PULSE 76; TEMP 96
== END 2016-08-02 11:50 | disposition home or self-care (01) | DRG 775 ==
LOC: YASAS 13:31 → Y3N 18:07
PROVIDERS: ADMIT Internal Medicine; ATTEND Internal Medicine
PROC: HZ2ZZZZ Detoxification Services for Substance Abuse Treatment (ICD-10-PCS; principal; 2016-08-02)
DX: F10.20 Alcohol dependence, uncomplicated (principal); F12.10 Cannabis abuse, uncomplicated; F10.24 Alcohol dependence with alcohol-induced mood disorder; I10 Essential (primary) hypertension; K21.9 Gastro-esophageal reflux disease without esophagitis; E78.5 Hyperlipidemia, unspecified; H50.9 Unspecified strabismus; Z90.5 Acquired absence of kidney
CPT/HCPCS: 36415; 80053; 81003; 81015; 84075; 84450; 84460; 85027; 86593; 87389; 90732; 93005; 93010; G0009

== ENCOUNTER 2016-08-15 11:25 | Inpatient (IN) | payer OTHER ==
[2016-08-15 12:03] VITALS: BMI 27.8
--- NOTE | 2016-08-15 14:24 | HP ---
CIWA Score - CIWA Score Nausea/Vomitin-Mild Nausea/No Vomiting Muscle Tremors: 4-Moderate,w/Arms Extend Anxiety: 4-Mod. Anxious/Guarded Agitation: 4-Moderately Restless Paroxysmal Sweats: 3 Orientation: 0-Oriented Tacttile Disturbances: 0-None Auditory Disturbances: 0-None Visual Disturbances: 0-None Headache: 2-Mild CIWA-Ar Total Score: 18 Admission ROS BHS - HPI Chief Complaint: I want to come back to detox and go to rehab. Allergies/Adverse Reactions: Allergies Allergy/AdvReac Type Severity Reaction Status Date / Time halothane Allergy Unknown Verified 07/29/16 16:39 History of Present Illness: pt is a 51yr old male with a history of alcohol dependence seeking detox for treatment. Exam Limitations: No Limitations - Ebola screening Have you traveled outside of the country in the last 21 days: No Have you had contact with anyone from an Ebola affected area: No Have you been sick,other than usual withdrawal symptoms: No Do you have a fever: No - Review of Systems Constitutional: Chills, Diaphoresis, Loss of Appetite, Night Sweats, Unintentional Wgt. Loss EENT: reports: Other (poor left eye vision d/t defect) Respiratory: reports: No Symptoms reported Cardiac: reports: No Symptoms Reported GI: reports: No Symptoms Reported, Poor Appetite, Poor Fluid Intake, Indigestion : reports: No Symptoms Reported Musculoskeletal: reports: No Symptoms Reported Integumentary: reports: Flushing, Sweating Neuro: reports: Tingling, Tremors Endocrine: reports: Excessive Sweating, Flushing, Intolerance to Cold, Intolerance to Heat Hematology: reports: No Symptoms Reported Psychiatric: reports: Judgement Intact, Mood/Affect Appropiate, Orientated x3, Agitated, Anxious Other Systems: Reviewed and Negative Patient History - Patient Medical History Hx Anemia: No Hx Asthma: No Hx Chronic Obstructive Pulmonary Disease (COPD): No Hx Cancer: No Hx Cardiac Disorders: No Hx Congestive Heart Failure: No Hx Hypertension: Yes (on coreg) Hx Hypercholesterolemia: Yes (atorvastatin ) Hx Pacemaker: No HX Cerebrovascular Accident: No Hx Seizures: No Hx Dementia: No Hx Diabetes: No Hx Gastrointestinal Disorders: Yes (acid reflux) Hx Liver Disease: No Hx Genitourinary Disorders: No Hx Sexually Transmitted Disorders: No Hx Renal Disease (ESRD): No Hx Thyroid Disease: No Hx Human Immunodeficiency Virus (HIV): No (neg) Hx Hepatitis C: No (neg) Hx Depression: No Hx Suicide Attempt: No (denies) Hx Bipolar Disorder: No Hx Schizophrenia: No - Patient Surgical History Past Surgical History: Yes Hx Neurologic Surgery: No Hx Cataract Extraction: No Hx Cardiac Surgery: No Hx Lung Surgery: No Hx Breast Surgery: No Hx Breast Biopsy: No Hx Abdominal Surgery: Yes (german hernia repair x 4- last 20) Hx Appendectomy: No Hx Cholecystectomy: No Hx Genitourinary Surgery: No Hx Section: No Hx Orthopedic Surgery: No Hx Hysterectomy: No Other Surgical History: left eye surgery at 5yrs Anesthesia Reaction: Yes (Halothane) - PPD History Previous Implant?: Yes Documented Results: Negative w/proof Date: 07/31/16 Results: 0 mm PPD to be Administered?: No - Reproductive History Patient is a Female of Child Bearing Age (11 -55 yrs old): No - Smoking Cessation Smoking history: Current every day smoker Have you smoked in the past 12 months: Yes Aproximately how many cigarettes per day: 20 Cigars Per Day: 0 Hx Chewing Tobacco Use: No Initiated information on smoking cessation: Yes 'Breaking Loose' booklet given: 08/15/16 - Substance & Tx. History Hx Alcohol Use: Yes Substance Use Type: Alcohol - Substances Abused Alcohol Route: Oral Frequency: Daily Amount used: 1-2 pints vodka/3 tall cans of beer Age of first use: 20 Date of Last Use: 08/15/16 Family Disease History - Family Disease History Family History: Denies Admission Physical Exam S - Vital Signs Vital Signs: Vital Signs - 24 hr 08/15/16 11:54 Temperature 97.5 F L Pulse Rate 88 Respiratory 18 Rate Blood Pressure 159/115 - Physical General Appearance: Yes: Appropriately Dressed, Moderate Distress, Tremorous, Irritable, Sweating, Anxious HEENTM: Yes: Normal Voice, Nasal Congestion, Rhinorrhea Respiratory: Yes: Lungs Clear, Normal Breath Sounds, No Respiratory Distress Neck: Yes: Within Normal Limits Breast: Yes: Within Normal Limits Cardiology: Yes: Regular Rhythm, Regular Rate, S1, S2 Abdominal: Yes: Normal Bowel Sounds, Non Tender, Soft Genitourinary: Yes: Within Normal Limits Back: Yes: Normal Inspection Musculoskeletal: Yes: full range of Motion Extremities: Yes: Normal Inspection, Non-Tender, Tremors Neurological: Yes: Fully Oriented, Alert, Normal Response Integumentary: Yes: Normal Color, Diaphoresis Lymphatic: Yes: Within Normal Limits - Diagnostic (1) Alcohol dependence with uncomplicated withdrawal Current Visit: Yes Status: Chronic (2) H/O gastroesophageal reflux (GERD) Current Visit: Yes Status: Chronic (3) HTN (hypertension) Current Visit: Yes Status: Chronic Qualifiers: Hypertension type: essential hypertension Qualified Code(s): I10 - Essential (primary) hypertension (4) Hyperlipemia Current Visit: Yes Status: Chronic Qualifiers: Hyperlipidemia type: unspecified Qualified Code(s): E78.5 - Hyperlipidemia, unspecified (5) Nicotine dependence Current Visit: Yes Status: Chronic Qualifiers: Nicotine product type: cigarettes Substance use status: uncomplicated Qualified Code(s): F17.210 - Nicotine dependence, cigarettes, uncomplicated (6) Strabismus Current Visit: No Status: Chronic Cleared for Admission [facility] - Detox or Rehab [facility] Level of Care: Medically Managed Detox Regimen/Protocol: Librium [facility] Breath Alcohol Content Breath Alcohol Content: 0.090 Urine Drug Screen - Results Drug Screen Negative: No Urine Drug Screen Results: BZO-Benzodiazepines
[2016-08-15] MEDS ORDERED: MENTHOL/PHENOL 1 EACH UD MM PRN (14:34)
[2016-08-15] MEDS ORDERED: ACETAMINOPHEN 325 MG TABLET (FP) PO PRN (14:34)
[2016-08-15] MEDS ORDERED: IBUPROFEN 400 MG TABLET (FP) PO PRN (14:34)
[2016-08-15] MEDS ORDERED: P-EPHED 60MG/TRIPROLIDI 2.5MG TABLET PO PRN (14:34)
[2016-08-15] MEDS ORDERED: chlordiazePOXIDE HCL 25 MG CAPSULE PO PRN (14:34)
[2016-08-15] MEDS ORDERED: LOPERAMIDE HCL 2 MG CAPSULE PO PRN (14:34)
[2016-08-15] MEDS ORDERED: guaiFENesin/D-METHORPHAN HB 10 ML UNIT-DOSE CUPS PO PRN (14:34)
[2016-08-15] MEDS ORDERED: MAG HYDROX/AL HYDROX/SIMETH 30 ML UNIT-DOSE CUP PO PRN (14:34)
[2016-08-15] MEDS ORDERED: diphenhydrAMINE HCL 50 MG CAPSULE PO PRN (14:34)
[2016-08-15] MEDS ORDERED: MAGNESIUM CITRATE 300 ML BOTTLE PO PRN (14:34)
[2016-08-15] MEDS ORDERED: MAGNESIUM HYDROX 2400MG/30ML ORAL SUSPENSION 30 ML CUP PO PRN (14:34)
[2016-08-15] MEDS ORDERED: NICOTINE POLACRILEX 4 MG GUM BUC PRN (14:49)
[2016-08-15] MEDS ORDERED: hydrOXYzine PAMOATE 50 MG CAPSULE (FP) PO PRN (14:49)
[2016-08-15] MEDS ORDERED: chlordiazePOXIDE HCL 25 MG CAPSULE PO ONE (15:38)
[2016-08-15] MEDS ORDERED: cloNIDine HCL 0.1 MG TABLET PO ONE (16:20)
[2016-08-15] MEDS: chlordiazePOXIDE HCL 25 MG CAPSULE PO SCH ×2 (17:03→22:49)
[2016-08-15 18:53] LABS: URINE APPEARANCE CLEAR; URINE BILIRUBIN NEGATIVE (NEGATIVE); URINE BLOOD NEGATIVE (NEGATIVE); URINE COLOR STRAW; URINE GLUCOSE (UA) NEGATIVE (NEGATIVE); URINE KETONE NEGATIVE (NEGATIVE); URINE LEUK ESTERASE NEGATIVE (NEGATIVE); URINE NITRITE NEGATIVE (NEGATIVE); URINE PROTEIN NEGATIVE (NEGATIVE); URINE UROBILINOGEN NEGATIVE E.U./dl (0.2-1.0)
[2016-08-15] MEDS: ATORVASTATIN CA 10 MG TABLET (FP) PO SCH (22:49)
[2016-08-15] MEDS: THIAMINE HCL 100 MG TABLET (FP) PO SCH (22:49)
[2016-08-15] MEDS: CARVEDILOL 25 MG TABLET (FP) PO SCH (23:25)
[2016-08-16] MEDS: chlordiazePOXIDE HCL 25 MG CAPSULE PO SCH ×4 (06:01→22:40)
[2016-08-16] MEDS: PRENATAL VITAMINS W/ FOLIC ACID TABLET (FP) PO SCH (10:56)
[2016-08-16] MEDS: NICOTINE 21 MG/24 HOURS TOPICAL PATCH TD SCH (10:57)
[2016-08-16] MEDS: CARVEDILOL 25 MG TABLET (FP) PO SCH ×2 (11:35→22:40)
--- NOTE | 2016-08-16 12:29 | PN ---
S CIWA - CIWA Score Nausea/Vomitin Muscle Tremors: 3 Anxiety: 3 Agitation: 2 Paroxysmal Sweats: 3 Orientation: 0-Oriented Tacttile Disturbances: 1-Very Mild Itch/Numbness Auditory Disturbances: 0-None Visual Disturbances: 0-None Headache: 0-None Present CIWA-Ar Total Score: 14 BHS Progress Note (SOAP) Subjective: interrupted sleep sweats, Objective: 08/16/16 12:28 Vital Signs Temperature 97.1 F L 08/16/16 10:25 Pulse Rate 79 08/16/16 10:25 Respiratory Rate 20 08/16/16 10:25 Blood Pressure 146/91 08/16/16 10:25 O2 Sat by Pulse Oximetry (%) Laboratory Tests 08/15/16 13:00 Urine Color Straw Urine Appearance Clear Urine pH 7.0 D Ur Specific [place] 1.006 Urine Protein Negative Urine Glucose (UA) Negative Urine Ketones Negative Urine Blood Negative Urine Nitrite Negative Urine Bilirubin Negative Urine Urobilinogen Negative Ur Leukocyte Esterase Negative pending labs pt [id number] sitting on side of bed in [facility] Assessment: 08/16/16 12:28 withdrawal sx;s Plan: cont. detox increassee fluids
[2016-08-16] MEDS: ATORVASTATIN CA 10 MG TABLET (FP) PO SCH (22:40)
[2016-08-16] MEDS: THIAMINE HCL 100 MG TABLET (FP) PO SCH (22:55)
[2016-08-17] MEDS: chlordiazePOXIDE HCL 25 MG CAPSULE PO SCH ×2 (05:25→10:13)
[2016-08-17] MEDS: PRENATAL VITAMINS W/ FOLIC ACID TABLET (FP) PO SCH (10:13)
[2016-08-17] MEDS: NICOTINE 21 MG/24 HOURS TOPICAL PATCH TD SCH (10:14)
[2016-08-17] MEDS: CARVEDILOL 25 MG TABLET (FP) PO SCH ×2 (10:15→22:08)
--- NOTE | 2016-08-17 11:59 | EKG ---
Test Reason : Blood Pressure : / mmHG Vent. Rate : 084 BPM Atrial Rate : 084 BPM P-R Int : 170 ms QRS Dur : 092 ms QT Int : 372 ms P-R-T Axes : 046 -16 030 degrees QTc Int : 439 ms NORMAL SINUS RHYTHM WITH SINUS ARRHYTHMIA INFERIOR INFARCT (CITED ON OR BEFORE 16-JUL-2016) CANNOT RULE OUT ANTERIOR INFARCT , AGE UNDETERMINED INCOMPLETE RBBB Confirmed by JOANN GAMA MD ([id number]) on 08/17/2016 11:59:08 AM Referred By: Confirmed By:JOANN GAMA MD
--- NOTE | 2016-08-17 12:01 | PN ---
S CIWA - CIWA Score Nausea/Vomitin Muscle Tremors: 3 Anxiety: 2 Agitation: 2 Paroxysmal Sweats: 1-Minimal Palms Moist Orientation: 0-Oriented Tacttile Disturbances: 1-Very Mild Itch/Numbness Auditory Disturbances: 1-Very Mild Visual Disturbances: 1-Very Mild Sensitivity Headache: 2-Mild CIWA-Ar Total Score: 16 BHS Progress Note (SOAP) Subjective: ALERT,IRRITABLE,ANXIOUS,INTERRUPTED SLEEP,TREMOR Objective: 08/17/16 12:00 Vital Signs Temperature 97.3 F L 08/17/16 10:24 Pulse Rate 71 08/17/16 10:24 Respiratory Rate 18 08/17/16 10:24 Blood Pressure 132/87 08/17/16 10:24 O2 Sat by Pulse Oximetry (%) Laboratory Last Values Urine Color Straw 08/15/16 13:00 Urine Appearance Clear 08/15/16 13:00 Urine pH 7.0 (5.0-8.0) D 08/15/16 13:00 Ur Specific [place] 1.006 (1.001-1.035) 08/15/16 13:00 Urine Protein Negative (NEGATIVE) 08/15/16 13:00 Urine Glucose (UA) Negative (NEGATIVE) 08/15/16 13:00 Urine Ketones Negative (NEGATIVE) 08/15/16 13:00 Urine Blood Negative (NEGATIVE) 08/15/16 13:00 Urine Nitrite Negative (NEGATIVE) 08/15/16 13:00 Urine Bilirubin Negative (NEGATIVE) 08/15/16 13:00 Urine Urobilinogen Negative E.U./dl (0.2-1.0) 08/15/16 13:00 Ur Leukocyte Esterase Negative (NEGATIVE) 08/15/16 13:00 LABS PENDING Assessment: 08/17/16 12:00 WITHDRAWAL SYMPTOM Plan: CONTINUE DETOX
[2016-08-17] MEDS: chlordiazePOXIDE 5 MG CAPSULE PO SCH ×2 (17:15→22:08)
[2016-08-17] MEDS: ATORVASTATIN CA 10 MG TABLET (FP) PO SCH (22:08)
[2016-08-17] MEDS: THIAMINE HCL 100 MG TABLET (FP) PO SCH (22:08)
[2016-08-18] MEDS: chlordiazePOXIDE 5 MG CAPSULE PO SCH ×2 (05:33→10:49)
[2016-08-18] MEDS: NICOTINE 21 MG/24 HOURS TOPICAL PATCH TD SCH (10:47)
[2016-08-18] MEDS: PRENATAL VITAMINS W/ FOLIC ACID TABLET (FP) PO SCH (10:49)
[2016-08-18] MEDS: CARVEDILOL 25 MG TABLET (FP) PO SCH ×2 (10:49→22:44)
--- NOTE | 2016-08-18 11:19 | PN ---
S Progress Note (SOAP) Subjective: ALERT,IRRITABLE,ANXIOUS,INTERRUPTED SLEEP Objective: 08/18/16 11:18 Vital Signs Temperature 98.4 F 08/18/16 09:55 Pulse Rate 63 08/18/16 09:55 Respiratory Rate 18 08/18/16 09:55 Blood Pressure 136/90 08/18/16 09:55 O2 Sat by Pulse Oximetry (%) Assessment: 08/18/16 11:18 WITHDRAWAL SYMPTOM Plan: CONTINUE DETOX,DISCHARGE IN AM
[2016-08-18] MEDS: chlordiazePOXIDE HCL 10 MG CAPSULE PO SCH ×2 (17:39→22:44)
[2016-08-18] MEDS: THIAMINE HCL 100 MG TABLET (FP) PO SCH (22:44)
[2016-08-18] MEDS: ATORVASTATIN CA 10 MG TABLET (FP) PO SCH (22:44)
[2016-08-19] MEDS: chlordiazePOXIDE HCL 10 MG CAPSULE PO SCH ×2 (05:07→10:22)
--- NOTE | 2016-08-19 08:57 | PN ---
S Progress Note (SOAP) Subjective: ALERT,NO COMPLAINT Objective: 08/19/16 08:56 Vital Signs Temperature 97.1 F L 08/19/16 06:00 Pulse Rate 70 08/19/16 06:00 Respiratory Rate 18 08/19/16 06:00 Blood Pressure 129/61 08/19/16 06:00 O2 Sat by Pulse Oximetry (%) Assessment: 08/19/16 08:56 DETOX COMPLETED,NO WITHDRAWAL SYMPTOM Plan: DISCHARGE TODAY,FOLLOW UP WITH AFTER CARE PROGRAM ARRANGEMENT
--- NOTE | 2016-08-19 09:00 | DS ---
[facility] Detox Discharge Summary Admission Date: 08/15/16 Discharge Date: 08/19/16 - History Present History: Alcohol Dependence Additional Comments: FOLLOW UP WITH [facility] Pertinent Past History: HYPERTENSION HYPERLIPIDEMIA NICOTINE DEPENDENCE STRABISMUS - Physical Exam Results Vital Signs: Vital Signs Temperature 97.1 F L 08/19/16 06:00 Pulse Rate 70 08/19/16 06:00 Respiratory Rate 18 08/19/16 06:00 Blood Pressure 129/61 08/19/16 06:00 O2 Sat by Pulse Oximetry (%) Pertinent Admission Physical Exam Findings: WITHDRAWAL SYMPTOM - Treatment Hospital Course: Detox Protocol Followed, Detoxed Safely, Responded well, Discharged Condition Good, Rehab Referral Accepted Patient has Accepted a Rehab Referral to: [facility] - Medication Discharge Medications: Ambulatory Orders Atorvastatin Ca [Lipitor] 10 mg PO DAILY 02/16/14 Carvedilol [Coreg -] 25 mg PO BID 02/16/14 Cetirizine HCl [Zyrtec -] 10 mg PO DAILY 02/16/14 - AMA Did Patient Leave Against Medical Advice: No
[2016-08-19] MEDS: NICOTINE 21 MG/24 HOURS TOPICAL PATCH TD SCH (10:20)
[2016-08-19] MEDS: PRENATAL VITAMINS W/ FOLIC ACID TABLET (FP) PO SCH (10:20)
[2016-08-19] MEDS: CARVEDILOL 25 MG TABLET (FP) PO SCH (10:20)
[2016-08-19 10:44] VITALS: BP 137/96; PULSE 73; TEMP 97.5
== END 2016-08-19 11:21 | disposition other institution (70) | DRG 775 ==
LOC: YASAS 11:25 → Y6N 14:49
PROVIDERS: ADMIT Internal Medicine Addiction Medicine; ATTEND Internal Medicine Addiction Medicine
PROC: HZ2ZZZZ Detoxification Services for Substance Abuse Treatment (ICD-10-PCS; principal; 2016-08-15)
DX: F10.230 Alcohol dependence with withdrawal, uncomplicated (principal); F17.210 Nicotine dependence, cigarettes, uncomplicated; I10 Essential (primary) hypertension; E78.5 Hyperlipidemia, unspecified; K21.9 Gastro-esophageal reflux disease without esophagitis; H50.9 Unspecified strabismus
CPT/HCPCS: 81003; 93005; 93010

== ENCOUNTER 2016-08-19 12:04 | Inpatient (IN) | payer OTHER ==
[2016-08-19 13:30] VITALS: BMI 27.8
[2016-08-19] MEDS ORDERED: LOPERAMIDE HCL 2 MG CAPSULE PO PRN (14:57)
[2016-08-19] MEDS ORDERED: hydrOXYzine PAMOATE 50 MG CAPSULE (FP) PO PRN (14:57)
[2016-08-19] MEDS ORDERED: MAGNESIUM HYDROX 2400MG/30ML ORAL SUSPENSION 30 ML CUP PO PRN (14:57)
[2016-08-19] MEDS ORDERED: IBUPROFEN 400 MG TABLET (FP) PO PRN (14:57)
[2016-08-19] MEDS ORDERED: P-EPHED 60MG/TRIPROLIDI 2.5MG TABLET PO PRN (14:57)
[2016-08-19] MEDS ORDERED: guaiFENesin/D-METHORPHAN HB 10 ML UNIT-DOSE CUPS PO PRN (14:57)
[2016-08-19] MEDS ORDERED: MAGNESIUM CITRATE 300 ML BOTTLE PO PRN (14:57)
[2016-08-19] MEDS ORDERED: diphenhydrAMINE HCL 50 MG CAPSULE PO PRN (14:57)
[2016-08-19] MEDS ORDERED: MENTHOL/PHENOL 1 EACH UD MM PRN (14:57)
[2016-08-19] MEDS ORDERED: ACETAMINOPHEN 325 MG TABLET (FP) PO PRN (14:57)
[2016-08-19] MEDS ORDERED: MAG HYDROX/AL HYDROX/SIMETH 30 ML UNIT-DOSE CUP PO PRN (14:57)
--- NOTE | 2016-08-19 15:00 | HP ---
[facility] Rehab Assess/Revision - Admission History Admitted to Rehab from: [facility] Date of Admission to Rehab: 08/20/16 - Vital signs Vital Signs: Vital Signs Period Temp Pulse Resp BP Sys/Harris Pulse Ox Last 24 Hr 98.6 F 72 20 141/90 - Findings Detox History & Physical reviewed: Yes Concur with findings: Yes Comments/Additional Findings: for rehab as protocol
[2016-08-19] MEDS: CARVEDILOL 25 MG TABLET (FP) PO SCH (21:20)
[2016-08-19] MEDS: THIAMINE HCL 100 MG TABLET (FP) PO SCH (21:20)
--- NOTE | 2016-08-20 06:58 | HP ---
Psychiatrist Admission - Data Date of interview: 08/20/16 Admission source: 6N Identifying data: This is the first [facility] admission for this 51 years old single male, unemployed with no source of income, domiciled living with his parents seeking rehab treatment for alcohol Medical History: Significant for GERD hypercholesterolemia, hypertension, Strabismus left eye and a history of past surgeries (eye surgery at age [age] and bilateral herniorraphy x 2). Smnokes cigaretes 1ppd Psychiatric History: Denies history of previous psychiatric treatment Physical/Sexual Abuse/Trauma History: Denies history of emotional, physcal or sexual abuse as well as DV relationship Additional Comment: Reports one remote previous arrest for DWI. Vital Signs: Vital Signs - 24 hr 08/19/16 08/19/16 08/20/16 13:02 20:30 00:30 Temperature 98.6 F Pulse Rate 72 74 Respiratory 20 18 17 Rate Blood Pressure 141/90 129/90 08/20/16 03:30 Temperature Pulse Rate Respiratory 18 Rate Blood Pressure Allergies/Adverse Reactions: Allergies Allergy/AdvReac Type Severity Reaction Status Date / Time halothane Allergy Unknown Verified 08/19/16 13:30 Date of last physical exam: 08/15/16 Concur with the findings of this exam: Yes - Substance Abuse/Tx History Hx Substance Use: Yes Substance Use Type: Alcohol (Started drinking alcohol at age 20, consumes 1-2 pints of vodka & 3 tall cans of beeer daily. Last drink on 08/15/16) Hx Substance Use Treatment: Yes (4 previous inpt detox @ [facility]. Rehab at [facility]) - Admission Criteria Previous failed treatment: No Poor recovery environment: Yes Comorbidities: Yes Lacks judgement: Yes Mental Status Exam - Mental Status Exam Alert and Oriented to: Time, Place, Person Cognitive Function: Fair Patient Appearance: Well Groomed Mood: Hopeful, Euthymic Patient Behavior: Cooperative Speech Pattern: Clear Voice Loudness: Normal Thought Process: Intact Thought Disorder: Not Present Hallucinations: Denies Suicidal Ideation: Denies Homicidal Ideation: Denies Insight/Judgement: Fair Sleep: Well Appetite: Good Muscle strength/Tone: Normal Gait/Station: Normal Psychiatric Findings - Problem List ([place] 1, 2,3) (1) Alcohol dependence with uncomplicated withdrawal Current Visit: No Status: Chronic (2) Nicotine dependence Current Visit: No Status: Chronic Qualifiers: Nicotine product type: cigarettes Substance use status: uncomplicated Qualified Code(s): F17.210 - Nicotine dependence, cigarettes, uncomplicated (3) H/O gastroesophageal reflux (GERD) Current Visit: No Status: Chronic (4) HTN (hypertension) Current Visit: No Status: Chronic Qualifiers: Hypertension type: essential hypertension Qualified Code(s): I10 - Essential (primary) hypertension (5) Hyperlipemia Current Visit: No Status: Chronic Qualifiers: Hyperlipidemia type: unspecified Qualified Code(s): E78.5 - Hyperlipidemia, unspecified (6) Strabismus Current Visit: No Status: Chronic - Initial Treatment Plan Initial Treatment Plan: Monitor progress
[2016-08-20] MEDS: ATORVASTATIN CA 10 MG TABLET (FP) PO SCH (09:49)
[2016-08-20] MEDS: PRENATAL VITAMINS W/ FOLIC ACID TABLET (FP) PO SCH (09:49)
[2016-08-20] MEDS: CARVEDILOL 25 MG TABLET (FP) PO SCH ×2 (09:49→21:20)
[2016-08-20] MEDS: THIAMINE HCL 100 MG TABLET (FP) PO SCH (21:20)
[2016-08-21] MEDS: ATORVASTATIN CA 10 MG TABLET (FP) PO SCH (09:50)
[2016-08-21] MEDS: CARVEDILOL 25 MG TABLET (FP) PO SCH ×2 (09:50→21:14)
[2016-08-21] MEDS: PRENATAL VITAMINS W/ FOLIC ACID TABLET (FP) PO SCH (09:50)
[2016-08-21] MEDS: NICOTINE 21 MG/24 HOURS TOPICAL PATCH TD SCH (09:51)
[2016-08-21] MEDS: THIAMINE HCL 100 MG TABLET (FP) PO SCH (21:14)
[2016-08-22] MEDS: PRENATAL VITAMINS W/ FOLIC ACID TABLET (FP) PO SCH (09:59)
[2016-08-22] MEDS: ATORVASTATIN CA 10 MG TABLET (FP) PO SCH (09:59)
[2016-08-22] MEDS: CARVEDILOL 25 MG TABLET (FP) PO SCH ×2 (09:59→21:34)
[2016-08-22] MEDS: NICOTINE 21 MG/24 HOURS TOPICAL PATCH TD SCH (09:59)
[2016-08-22] MEDS: THIAMINE HCL 100 MG TABLET (FP) PO SCH (21:34)
[2016-08-23] MEDS: PRENATAL VITAMINS W/ FOLIC ACID TABLET (FP) PO SCH (09:38)
[2016-08-23] MEDS: ATORVASTATIN CA 10 MG TABLET (FP) PO SCH (09:38)
[2016-08-23] MEDS: CARVEDILOL 25 MG TABLET (FP) PO SCH ×2 (09:38→21:07)
[2016-08-23] MEDS: NICOTINE 21 MG/24 HOURS TOPICAL PATCH TD SCH (09:38)
[2016-08-23] MEDS: THIAMINE HCL 100 MG TABLET (FP) PO SCH (21:07)
[2016-08-24] MEDS: PRENATAL VITAMINS W/ FOLIC ACID TABLET (FP) PO SCH (09:47)
[2016-08-24] MEDS: CARVEDILOL 25 MG TABLET (FP) PO SCH ×2 (09:47→21:28)
[2016-08-24] MEDS: ATORVASTATIN CA 10 MG TABLET (FP) PO SCH (09:47)
[2016-08-24] MEDS: NICOTINE 21 MG/24 HOURS TOPICAL PATCH TD SCH (09:47)
[2016-08-24] MEDS: THIAMINE HCL 100 MG TABLET (FP) PO SCH (21:28)
[2016-08-25] MEDS: PRENATAL VITAMINS W/ FOLIC ACID TABLET (FP) PO SCH (09:45)
[2016-08-25] MEDS: ATORVASTATIN CA 10 MG TABLET (FP) PO SCH (09:46)
[2016-08-25] MEDS: NICOTINE 21 MG/24 HOURS TOPICAL PATCH TD SCH (09:46)
[2016-08-25] MEDS: CARVEDILOL 25 MG TABLET (FP) PO SCH ×2 (09:46→21:30)
[2016-08-25] MEDS: THIAMINE HCL 100 MG TABLET (FP) PO SCH (21:30)
[2016-08-26] MEDS: ATORVASTATIN CA 10 MG TABLET (FP) PO SCH (09:50)
[2016-08-26] MEDS: NICOTINE 21 MG/24 HOURS TOPICAL PATCH TD SCH (09:50)
[2016-08-26] MEDS: CARVEDILOL 25 MG TABLET (FP) PO SCH ×2 (09:50→21:43)
[2016-08-26] MEDS: PRENATAL VITAMINS W/ FOLIC ACID TABLET (FP) PO SCH (09:50)
[2016-08-26] MEDS: THIAMINE HCL 100 MG TABLET (FP) PO SCH (21:43)
[2016-08-27] MEDS: NICOTINE 21 MG/24 HOURS TOPICAL PATCH TD SCH (09:48)
[2016-08-27] MEDS: PRENATAL VITAMINS W/ FOLIC ACID TABLET (FP) PO SCH (09:48)
[2016-08-27] MEDS: CARVEDILOL 25 MG TABLET (FP) PO SCH ×2 (09:48→21:38)
[2016-08-27] MEDS: ATORVASTATIN CA 10 MG TABLET (FP) PO SCH (10:53)
[2016-08-27] MEDS: THIAMINE HCL 100 MG TABLET (FP) PO SCH (21:38)
[2016-08-28] MEDS: PRENATAL VITAMINS W/ FOLIC ACID TABLET (FP) PO SCH (09:41)
[2016-08-28] MEDS: CARVEDILOL 25 MG TABLET (FP) PO SCH ×2 (09:41→21:22)
[2016-08-28] MEDS: ATORVASTATIN CA 10 MG TABLET (FP) PO SCH (09:41)
[2016-08-28] MEDS: NICOTINE 21 MG/24 HOURS TOPICAL PATCH TD SCH (09:42)
[2016-08-28] MEDS: THIAMINE HCL 100 MG TABLET (FP) PO SCH (21:22)
[2016-08-29] MEDS: PRENATAL VITAMINS W/ FOLIC ACID TABLET (FP) PO SCH (09:36)
[2016-08-29] MEDS: CARVEDILOL 25 MG TABLET (FP) PO SCH ×2 (09:36→21:46)
[2016-08-29] MEDS: NICOTINE 21 MG/24 HOURS TOPICAL PATCH TD SCH (09:36)
[2016-08-29] MEDS: ATORVASTATIN CA 10 MG TABLET (FP) PO SCH (09:36)
[2016-08-29] MEDS: ACAMPROSATE CALCIUM 333 MG TABLET.DR PO SCH ×2 (14:08→21:45)
--- NOTE | 2016-08-29 14:43 | PN ---
Psychiatric Progress Note Vital Signs: Vital Signs Period Temp Pulse Resp BP Sys/Harris Pulse Ox Last 24 Hr 98.3 F 59-74 18-18 122-144/77-92 Date of Session: 08/29/16 Chief Complaint:: Craving for alcohol HPI: Patient addressing Alcohol Dependence comorbid with Nicotine Dependence ROS: HTN, Hyperlipidemia, GERD, Strabismus left eye Current Medications: Active Medications Generic Name Dose Route Start Last Admin Trade Name Freq PRN Reason Stop Dose Admin Acamprosate 666 mg 08/29/16 14:00 Campral - PO TID VIVIANE Acetaminophen 650 mg 08/19/16 14:57 Tylenol - PO Q4H PRN FEVER OR PAIN Al Hydroxide/Mg Hydroxide 30 ml 08/19/16 14:57 Mylanta Oral Suspension - PO Q6H PRN DYSPEPSIA Atorvastatin Calcium 10 mg 08/20/16 10:00 08/29/16 09:36 Lipitor - PO 10 mg DAILY VIVIANE Administration Carvedilol 25 mg 08/19/16 22:00 08/29/16 09:36 Coreg - PO 25 mg BID VIVIANE Administration Diphenhydramine HCl 50 mg 08/19/16 14:57 Benadryl - PO HSMR1 PRN FOR ITCHING Eucalyptus/Menthol/Phenol/Sorbitol 1 each 08/19/16 14:57 Cepastat Lozenge - MM Q4H PRN SORE THROAT Guaifenesin 10 ml 08/19/16 14:57 Robitussin Dm - PO Q6H PRN COUGH Hydroxyzine Pamoate 50 mg 08/19/16 14:57 Vistaril - PO Q4H PRN AGITATION Ibuprofen 400 mg 08/19/16 14:57 Motrin - PO Q6H PRN PAIN Loperamide HCl 4 mg 08/19/16 14:57 Imodium - PO Q6H PRN DIARRHEA Magnesium Hydroxide 30 ml 08/19/16 14:57 Milk Of Magnesia - PO DAILY PRN CONSTIPATION Nicotine 21 mg 08/21/16 10:00 08/29/16 09:36 Nicoderm Patch - TD 21 mg DAILY VIVIANE Administration Multivit/Folic Acid/Iron 1 tab 08/20/16 10:00 08/29/16 09:36 Vitamins (Sjr) - PO 1 tab DAILY VIVIANE Administration Pseudoephedrine/Triprolidine 1 combo 08/19/16 14:57 Actifed - PO TID PRN NASAL CONGESTION Thiamine HCl 100 mg 08/19/16 22:00 08/28/16 21:22 Vitamin B1 - PO 100 mg HS VIVIANE Administration Medication(s) Change(s): Start Acamprosate(Campral) 666 mg po TID Current Side Effect: No Lab tests ordered: Yes Lab tests reviewed: Yes Provider note:: Patient reports experiencing a lot of craving for alcohol and requests to be helped with it. Use of opoid antagonist like Acamprosate and Naltrexone were discussed with patient and because of mild elvation in LFT's, he has decided to try Acamprosate. Adverse-effects of medication were discussed with patient and he was given an informative pamphlet as well Total face to face time:: 25 Mental Status Exam - Mental Status Exam Alert and Oriented to: Time, Place, Person Cognitive Function: Fair Patient Appearance: Well Groomed Mood: Hopeful, Euthymic Affect: Appropriate Patient Behavior: Cooperative Speech Pattern: Clear Voice Loudness: Normal Thought Process: Intact Thought Disorder: Not Present Hallucinations: Denies Suicidal Ideation: Denies Homicidal Ideation: Denies Insight/Judgement: Fair Sleep: Fair Appetite: Good Muscle strength/Tone: Normal Gait/Station: Normal Psychiatric Treatment Plan - Problem List (1) Alcohol dependence with uncomplicated withdrawal Current Visit: No (2) Nicotine dependence Current Visit: No Qualifiers: Nicotine product type: cigarettes Substance use status: uncomplicated Qualified Code(s): F17.210 - Nicotine dependence, cigarettes, uncomplicated (3) H/O gastroesophageal reflux (GERD) Current Visit: No (4) HTN (hypertension) Current Visit: No Qualifiers: Hypertension type: essential hypertension Qualified Code(s): I10 - Essential (primary) hypertension (5) Hyperlipemia Current Visit: No Qualifiers: Hyperlipidemia type: unspecified Qualified Code(s): E78.5 - Hyperlipidemia, unspecified (6) Strabismus Current Visit: No Initial treatment plan: 1) Strart Acamprosate 666 mg po TID. 2) Monitor progress
[2016-08-29] MEDS: THIAMINE HCL 100 MG TABLET (FP) PO SCH (21:45)
[2016-08-30] MEDS: ACAMPROSATE CALCIUM 333 MG TABLET.DR PO SCH ×3 (06:01→21:49)
[2016-08-30] MEDS: PRENATAL VITAMINS W/ FOLIC ACID TABLET (FP) PO SCH (09:48)
[2016-08-30] MEDS: CARVEDILOL 25 MG TABLET (FP) PO SCH ×2 (09:48→22:37)
[2016-08-30] MEDS: ATORVASTATIN CA 10 MG TABLET (FP) PO SCH (09:48)
[2016-08-30] MEDS: NICOTINE 21 MG/24 HOURS TOPICAL PATCH TD SCH (09:49)
[2016-08-30] MEDS: THIAMINE HCL 100 MG TABLET (FP) PO SCH (21:49)
[2016-08-31] MEDS: ACAMPROSATE CALCIUM 333 MG TABLET.DR PO SCH ×3 (06:01→21:24)
[2016-08-31] MEDS: NICOTINE 21 MG/24 HOURS TOPICAL PATCH TD SCH (09:45)
[2016-08-31] MEDS: CARVEDILOL 25 MG TABLET (FP) PO SCH ×2 (09:45→21:25)
[2016-08-31] MEDS: ATORVASTATIN CA 10 MG TABLET (FP) PO SCH (09:45)
[2016-08-31] MEDS: PRENATAL VITAMINS W/ FOLIC ACID TABLET (FP) PO SCH (09:45)
[2016-08-31] MEDS: THIAMINE HCL 100 MG TABLET (FP) PO SCH (21:24)
[2016-09-01] MEDS: ACAMPROSATE CALCIUM 333 MG TABLET.DR PO SCH ×3 (06:20→21:16)
[2016-09-01] MEDS ORDERED: PT OWN MED DRAWER 7, Y5N ONE (08:55)
[2016-09-01] MEDS: ATORVASTATIN CA 10 MG TABLET (FP) PO SCH (10:34)
[2016-09-01] MEDS: PRENATAL VITAMINS W/ FOLIC ACID TABLET (FP) PO SCH (10:34)
[2016-09-01] MEDS: CARVEDILOL 25 MG TABLET (FP) PO SCH ×2 (10:34→21:16)
[2016-09-01] MEDS: NICOTINE 21 MG/24 HOURS TOPICAL PATCH TD SCH (10:34)
[2016-09-01] MEDS: THIAMINE HCL 100 MG TABLET (FP) PO SCH (21:16)
[2016-09-02] MEDS: ACAMPROSATE CALCIUM 333 MG TABLET.DR PO SCH ×3 (05:57→21:17)
[2016-09-02] MEDS: PRENATAL VITAMINS W/ FOLIC ACID TABLET (FP) PO SCH (09:53)
[2016-09-02] MEDS: NICOTINE 21 MG/24 HOURS TOPICAL PATCH TD SCH (09:53)
[2016-09-02] MEDS: CARVEDILOL 25 MG TABLET (FP) PO SCH ×2 (09:53→21:17)
[2016-09-02] MEDS: ATORVASTATIN CA 10 MG TABLET (FP) PO SCH (09:53)
[2016-09-02] MEDS: THIAMINE HCL 100 MG TABLET (FP) PO SCH (21:17)
[2016-09-03] MEDS: ACAMPROSATE CALCIUM 333 MG TABLET.DR PO SCH ×3 (06:11→21:31)
[2016-09-03] MEDS: PRENATAL VITAMINS W/ FOLIC ACID TABLET (FP) PO SCH (10:16)
[2016-09-03] MEDS: CARVEDILOL 25 MG TABLET (FP) PO SCH ×2 (10:16→21:31)
[2016-09-03] MEDS: NICOTINE 21 MG/24 HOURS TOPICAL PATCH TD SCH (10:17)
[2016-09-03] MEDS: ATORVASTATIN CA 10 MG TABLET (FP) PO SCH (10:17)
[2016-09-03] MEDS: THIAMINE HCL 100 MG TABLET (FP) PO SCH (21:31)
[2016-09-04] MEDS: ACAMPROSATE CALCIUM 333 MG TABLET.DR PO SCH ×3 (05:56→21:38)
[2016-09-04] MEDS: ATORVASTATIN CA 10 MG TABLET (FP) PO SCH (09:36)
[2016-09-04] MEDS: NICOTINE 21 MG/24 HOURS TOPICAL PATCH TD SCH (09:36)
[2016-09-04] MEDS: PRENATAL VITAMINS W/ FOLIC ACID TABLET (FP) PO SCH (09:37)
[2016-09-04] MEDS: CARVEDILOL 25 MG TABLET (FP) PO SCH ×2 (09:37→21:40)
[2016-09-04] MEDS: THIAMINE HCL 100 MG TABLET (FP) PO SCH (21:38)
[2016-09-05] MEDS: ACAMPROSATE CALCIUM 333 MG TABLET.DR PO SCH ×3 (05:55→21:05)
[2016-09-05] MEDS ORDERED: PT OWN MED DRAWER 7, Y5N ONE (08:50)
[2016-09-05] MEDS: ATORVASTATIN CA 10 MG TABLET (FP) PO SCH (10:10)
[2016-09-05] MEDS: PRENATAL VITAMINS W/ FOLIC ACID TABLET (FP) PO SCH (10:10)
[2016-09-05] MEDS: NICOTINE 21 MG/24 HOURS TOPICAL PATCH TD SCH (10:10)
[2016-09-05] MEDS: CARVEDILOL 25 MG TABLET (FP) PO SCH ×2 (10:10→21:05)
[2016-09-05] MEDS: THIAMINE HCL 100 MG TABLET (FP) PO SCH (21:05)
[2016-09-06] MEDS: ACAMPROSATE CALCIUM 333 MG TABLET.DR PO SCH ×3 (05:55→21:18)
[2016-09-06] MEDS: NICOTINE 21 MG/24 HOURS TOPICAL PATCH TD SCH (09:44)
[2016-09-06] MEDS: CARVEDILOL 25 MG TABLET (FP) PO SCH ×2 (09:44→21:19)
[2016-09-06] MEDS: PRENATAL VITAMINS W/ FOLIC ACID TABLET (FP) PO SCH (09:44)
[2016-09-06] MEDS: ATORVASTATIN CA 10 MG TABLET (FP) PO SCH (09:44)
[2016-09-06] MEDS: THIAMINE HCL 100 MG TABLET (FP) PO SCH (21:18)
[2016-09-07] MEDS: ACAMPROSATE CALCIUM 333 MG TABLET.DR PO SCH ×3 (05:55→21:21)
[2016-09-07] MEDS: CARVEDILOL 25 MG TABLET (FP) PO SCH ×2 (09:48→21:20)
[2016-09-07] MEDS: ATORVASTATIN CA 10 MG TABLET (FP) PO SCH (09:48)
[2016-09-07] MEDS: PRENATAL VITAMINS W/ FOLIC ACID TABLET (FP) PO SCH (09:48)
[2016-09-07] MEDS: NICOTINE 21 MG/24 HOURS TOPICAL PATCH TD SCH (09:49)
[2016-09-07] MEDS: THIAMINE HCL 100 MG TABLET (FP) PO SCH (21:20)
[2016-09-08] MEDS: ACAMPROSATE CALCIUM 333 MG TABLET.DR PO SCH ×3 (06:10→21:22)
[2016-09-08] MEDS: NICOTINE 21 MG/24 HOURS TOPICAL PATCH TD SCH (09:50)
[2016-09-08] MEDS: CARVEDILOL 25 MG TABLET (FP) PO SCH ×2 (09:51→21:22)
[2016-09-08] MEDS: ATORVASTATIN CA 10 MG TABLET (FP) PO SCH (09:51)
[2016-09-08] MEDS: PRENATAL VITAMINS W/ FOLIC ACID TABLET (FP) PO SCH (09:51)
[2016-09-08] MEDS: THIAMINE HCL 100 MG TABLET (FP) PO SCH (21:22)
[2016-09-09] MEDS: ACAMPROSATE CALCIUM 333 MG TABLET.DR PO SCH ×3 (06:12→21:18)
[2016-09-09] MEDS: NICOTINE 21 MG/24 HOURS TOPICAL PATCH TD SCH (09:27)
[2016-09-09] MEDS: ATORVASTATIN CA 10 MG TABLET (FP) PO SCH (09:27)
[2016-09-09] MEDS: PRENATAL VITAMINS W/ FOLIC ACID TABLET (FP) PO SCH (09:27)
[2016-09-09] MEDS: CARVEDILOL 25 MG TABLET (FP) PO SCH ×2 (09:27→21:19)
[2016-09-09] MEDS: THIAMINE HCL 100 MG TABLET (FP) PO SCH (21:18)
[2016-09-10] MEDS: ACAMPROSATE CALCIUM 333 MG TABLET.DR PO SCH ×3 (05:59→21:06)
[2016-09-10] MEDS: PRENATAL VITAMINS W/ FOLIC ACID TABLET (FP) PO SCH (09:44)
[2016-09-10] MEDS: CARVEDILOL 25 MG TABLET (FP) PO SCH ×2 (09:44→21:06)
[2016-09-10] MEDS: ATORVASTATIN CA 10 MG TABLET (FP) PO SCH (09:44)
[2016-09-10] MEDS: NICOTINE 21 MG/24 HOURS TOPICAL PATCH TD SCH (09:44)
[2016-09-10] MEDS: THIAMINE HCL 100 MG TABLET (FP) PO SCH (21:06)
[2016-09-11] MEDS: ACAMPROSATE CALCIUM 333 MG TABLET.DR PO SCH ×3 (06:01→21:18)
[2016-09-11] MEDS: NICOTINE 21 MG/24 HOURS TOPICAL PATCH TD SCH (09:48)
[2016-09-11] MEDS: CARVEDILOL 25 MG TABLET (FP) PO SCH ×2 (09:48→21:18)
[2016-09-11] MEDS: PRENATAL VITAMINS W/ FOLIC ACID TABLET (FP) PO SCH (09:48)
[2016-09-11] MEDS: ATORVASTATIN CA 10 MG TABLET (FP) PO SCH (09:48)
[2016-09-11] MEDS: THIAMINE HCL 100 MG TABLET (FP) PO SCH (21:18)
[2016-09-12] MEDS: ACAMPROSATE CALCIUM 333 MG TABLET.DR PO SCH ×3 (05:54→21:13)
[2016-09-12] MEDS: CARVEDILOL 25 MG TABLET (FP) PO SCH ×2 (09:46→21:13)
[2016-09-12] MEDS: PRENATAL VITAMINS W/ FOLIC ACID TABLET (FP) PO SCH (09:46)
[2016-09-12] MEDS: ATORVASTATIN CA 10 MG TABLET (FP) PO SCH (09:47)
[2016-09-12] MEDS: NICOTINE 21 MG/24 HOURS TOPICAL PATCH TD SCH (09:47)
--- NOTE | 2016-09-12 15:10 | PN ---
Psychiatric Progress Note Vital Signs: Vital Signs Period Temp Pulse Resp BP Sys/Harris Pulse Ox Last 24 Hr 97.5 F 50-69 16-18 113-133/71-88 Date of Session: 09/12/16 Chief Complaint:: Discharge Note HPI: Patient addressing Alcohol Dependence comorbid with Nicotine Dependence ROS: HTN, Hyperlipidemia, GERD were medically managed Current Medications: Active Medications Generic Name Dose Route Start Last Admin Trade Name Freq PRN Reason Stop Dose Admin Acamprosate 666 mg 08/29/16 14:00 09/12/16 14:26 Campral - PO 666 mg TID VIVIANE Administration Acetaminophen 650 mg 08/19/16 14:57 Tylenol - PO Q4H PRN FEVER OR PAIN Al Hydroxide/Mg Hydroxide 30 ml 08/19/16 14:57 Mylanta Oral Suspension - PO Q6H PRN DYSPEPSIA Atorvastatin Calcium 10 mg 08/20/16 10:00 09/12/16 09:47 Lipitor - PO 10 mg DAILY VIVIANE Administration Carvedilol 25 mg 08/19/16 22:00 09/12/16 09:46 Coreg - PO 25 mg BID VIVIANE Administration Diphenhydramine HCl 50 mg 08/19/16 14:57 Benadryl - PO HSMR1 PRN FOR ITCHING Eucalyptus/Menthol/Phenol/Sorbitol 1 each 08/19/16 14:57 Cepastat Lozenge - MM Q4H PRN SORE THROAT Guaifenesin 10 ml 08/19/16 14:57 Robitussin Dm - PO Q6H PRN COUGH Hydroxyzine Pamoate 50 mg 08/19/16 14:57 Vistaril - PO Q4H PRN AGITATION Ibuprofen 400 mg 08/19/16 14:57 Motrin - PO Q6H PRN PAIN Loperamide HCl 4 mg 08/19/16 14:57 Imodium - PO Q6H PRN DIARRHEA Magnesium Hydroxide 30 ml 08/19/16 14:57 Milk Of Magnesia - PO DAILY PRN CONSTIPATION Nicotine 21 mg 08/21/16 10:00 09/12/16 09:47 Nicoderm Patch - TD 21 mg DAILY VIVIANE Administration Multivit/Folic Acid/Iron 1 tab 08/20/16 10:00 09/12/16 09:46 Vitamins (Sjr) - PO 1 tab DAILY VIVIANE Administration Pseudoephedrine/Triprolidine 1 combo 08/19/16 14:57 Actifed - PO TID PRN NASAL CONGESTION Thiamine HCl 100 mg 08/19/16 22:00 09/11/16 21:18 Vitamin B1 - PO 100 mg HS VIVIANE Administration Current Side Effect: No Lab tests ordered: Yes Lab tests reviewed: Yes Provider note:: Patient will complete this program on 09/13/16. He has met ihis treatment goals and will continue to address his issues in outpatient treatment at [facility]. He responded well to Acmprosate(Campral) 666 mg po TID. Script for that medication will be handed to patient since it could nit be electronically transmitted due to electronic failure. He is stable for discharge on 09/13/16 Total face to face time:: 35 Mental Status Exam - Mental Status Exam Alert and Oriented to: Time, Place, Person Cognitive Function: Fair Patient Appearance: Well Groomed Mood: Hopeful, Euthymic Affect: Appropriate Patient Behavior: Cooperative Speech Pattern: Clear Voice Loudness: Normal Thought Process: Intact Thought Disorder: Not Present Hallucinations: Denies Suicidal Ideation: Denies Homicidal Ideation: Denies Insight/Judgement: Fair Sleep: Fair Appetite: Good Gait/Station: Normal Psychiatric Treatment Plan - Problem List (1) Alcohol dependence with uncomplicated withdrawal Current Visit: No (2) Nicotine dependence Current Visit: No Qualifiers: Nicotine product type: cigarettes Substance use status: uncomplicated Qualified Code(s): F17.210 - Nicotine dependence, cigarettes, uncomplicated (3) H/O gastroesophageal reflux (GERD) Current Visit: No (4) HTN (hypertension) Current Visit: No Qualifiers: Hypertension type: essential hypertension Qualified Code(s): I10 - Essential (primary) hypertension (5) Hyperlipemia Current Visit: No Qualifiers: Hyperlipidemia type: unspecified Qualified Code(s): E78.5 - Hyperlipidemia, unspecified (6) Strabismus Current Visit: No Initial treatment plan: Patient will be discharge tomorrow and referred to [facility] for outpatient treatment
[2016-09-12] MEDS: THIAMINE HCL 100 MG TABLET (FP) PO SCH (21:13)
[2016-09-13] MEDS: ACAMPROSATE CALCIUM 333 MG TABLET.DR PO SCH (06:29)
[2016-09-13 06:45] VITALS: BP 119/74; PULSE 51; TEMP 97.6
[2016-09-13] MEDS: PRENATAL VITAMINS W/ FOLIC ACID TABLET (FP) PO SCH (09:40)
[2016-09-13] MEDS: ATORVASTATIN CA 10 MG TABLET (FP) PO SCH (09:40)
[2016-09-13] MEDS: CARVEDILOL 25 MG TABLET (FP) PO SCH (09:40)
[2016-09-13] MEDS: NICOTINE 21 MG/24 HOURS TOPICAL PATCH TD SCH (09:40)
[2016-09-13] MEDS ORDERED: PT OWN MED DRAWER 7, Y5N ONE (09:42)
== END 2016-09-13 10:05 | disposition home or self-care (01) | DRG 772 ==
LOC: YASAS 12:04 → Y3W 12:06
PROVIDERS: ADMIT Psychiatry & Neurology Psychiatry; ATTEND Psychiatry & Neurology Psychiatry
PROC: HZ42ZZZ Group Counseling for Substance Abuse Treatment, Cognitive-Behavioral (ICD-10-PCS; principal; 2016-08-19)
DX: F10.20 Alcohol dependence, uncomplicated (principal); F17.210 Nicotine dependence, cigarettes, uncomplicated; I10 Essential (primary) hypertension; E78.5 Hyperlipidemia, unspecified; K21.9 Gastro-esophageal reflux disease without esophagitis; H50.9 Unspecified strabismus

== ENCOUNTER 2021-07-29 10:17 | Inpatient (IN) | payer OTHER ==
[2021-07-29 11:24] LABS: BASO % 2.1 % (0-2.0); EOS % 9.8 % (0-4.5); HEMATOCRIT 46.6 % (35.4-49); HEMOGLOBIN 15.8 GM/dL (11.7-16.9); LYMPH % 10.6 % (8-40); MCH 30.3 pg (25.7-33.7); MCHC 33.9 g/dl (32.0-35.9); MEAN CELL VOLUME 89.6 fl (80-96); MEAN PLT VOLUME 9.5 fl (7.5-11.1); MONO % 2.6 % (3.8-10.2); NEUT % 74.9 % (42.8-82.8); PLATELET COUNT 128 10^3/uL (134-434); RDW 14.7 % (11.9-15.9); WHITE BLOOD COUNT 7.2 K/mm3 (4.0-10.0)
[2021-07-29] MEDS ORDERED: ALBUTEROL SO4 2.5/IPRATROPIUM 0.5 INH SOL 3 ML VIAL.NEB. NEB ONE (11:35)
[2021-07-29] MEDS: ALBUTEROL SO4 2.5/IPRATROPIUM 0.5 INH SOL 3 ML VIAL.NEB. NEB SCH (11:39)
[2021-07-29] MEDS ORDERED: AZITHROMYCIN IVPB 500 MG in DEXTROSE 5%-WATER - 250 ML IVPB ONE (11:45)
[2021-07-29] MEDS ORDERED: CEFTRIAXONE 1 GM in DEXTROSE 5%-WATER - 50 ML IVPB ONE (11:45)
[2021-07-29 11:47] LABS: ALBUMIN 4.5 g/dl (3.4-5.0); BLOOD UREA NITROGEN 15.4 mg/dL (7-18); CALCIUM 9.3 mg/dL (8.5-10.1); MAGNESIUM 2.2 mg/dL (1.8-2.4)
[2021-07-29 11:50] LABS: CREATININE 0.9 mg/dL (0.55-1.3)
[2021-07-29 11:52] LABS: BILIRUBIN,TOTAL 1.2 mg/dL (0.2-1); TOT PROT 7.2 g/dl (6.4-8.2)
[2021-07-29 12:07] LABS: N-TERMINAL BNP 52.5 pg/ml (5-125)
[2021-07-29] MEDS ORDERED: CEFTRIAXONE 1 GM/50 ML BAG ONE (12:23)
[2021-07-29] MEDS ORDERED: AZITHROMYCIN IVPB 500 MG/250 ML BAG IVPB ONE (12:23)
[2021-07-29] MEDS ORDERED: ACETAMINOPHEN 325 MG TABLET (FP) PO PRN (14:09)
[2021-07-29] MEDS ORDERED: ALBUTEROL SO4 2.5/IPRATROPIUM 0.5 INH SOL 3 ML VIAL.NEB. NEB PRN (14:12)
[2021-07-29 15:35] VITALS: BMI 27.5
[2021-07-29] MEDS: methylPREDNISolone NA SUCC 40 MG/1 ML VIAL IVPUSH SCH (17:05)
[2021-07-29] MEDS: CARVEDILOL 3.125 MG TABLET (FP) PO SCH (21:26)
[2021-07-30] MEDS: methylPREDNISolone NA SUCC 40 MG/1 ML VIAL IVPUSH SCH ×3 (03:00→17:18)
[2021-07-30] MEDS ORDERED: ALBUTEROL SO4 HFA INHALER IH PRN (03:12)
[2021-07-30 08:54] LABS: HEMATOCRIT 47.3 % (35.4-49); MCH 30.3 pg (25.7-33.7); MCHC 33.8 g/dl (32.0-35.9); MEAN CELL VOLUME 89.7 fl (80-96); MEAN PLT VOLUME 9.3 fl (7.5-11.1); PLATELET COUNT 152 10^3/uL (134-434); RBC 5.27 M/mm3 (4.00-5.60); RDW 14.8 % (11.9-15.9)
[2021-07-30] MEDS: CARVEDILOL 3.125 MG TABLET (FP) PO SCH ×2 (09:12→21:35)
[2021-07-30] MEDS ORDERED: cefTRIAXone SODIUM 1 GM VIAL ONE (09:16)
[2021-07-30] MEDS ORDERED: DEXTROSE 5%-WATER - 50 ML IVPB ONE (09:17)
[2021-07-30] MEDS: CEFTRIAXONE 1 GM in DEXTROSE 5%-WATER - 50 ML IVPB SCH (09:17)
[2021-07-30] MEDS: amLODIPine BESYLATE 10 MG TABLET (FP) PO SCH (09:18)
[2021-07-30] MEDS: ESCITALOPRAM OXALATE 10 MG TABLET PO SCH (09:18)
[2021-07-30] MEDS: PANTOPRAZOLE 40 MG TABLET PO SCH (09:18)
[2021-07-30] MEDS: ENOXAPARIN NA (PORCINE) 40 MG/0.4 ML DISP.SYRIN SQ SCH (09:20)
[2021-07-30 09:26] LABS: ALBUMIN 4.4 g/dl (3.4-5.0); CALCIUM 9.5 mg/dL (8.5-10.1)
[2021-07-30 09:27] LABS: BLOOD UREA NITROGEN 21.8 mg/dL (7-18)
[2021-07-30 09:28] LABS: CREATININE 1.1 mg/dL (0.55-1.3)
[2021-07-30 09:30] LABS: BILIRUBIN,TOTAL 0.5 mg/dL (0.2-1); TOT PROT 7.3 g/dl (6.4-8.2)
[2021-07-30] MEDS ORDERED: guaiFENesin/CODEINE 10 ML UNIT-DOSE CUPS PO PRN (10:09)
[2021-07-30 11:22] LABS: ANISOCYTOSIS 1+; MACROCYTOSIS 0; PLATELET ESTIMATE NORMAL
[2021-07-30] MEDS: NALTREXONE HCL 50 MG TABLET PO SCH (11:40)
[2021-07-30] MEDS: ALBUTEROL SO4 2.5/IPRATROPIUM 0.5 INH SOL 3 ML VIAL.NEB. NEB SCH ×3 (13:02→20:16)
[2021-07-30] MEDS: ATORVASTATIN CA 10 MG TABLET (FP) PO SCH (21:35)
[2021-07-31] MEDS: methylPREDNISolone NA SUCC 40 MG/1 ML VIAL IVPUSH SCH ×3 (02:34→17:20)
[2021-07-31] MEDS: ALBUTEROL SO4 2.5/IPRATROPIUM 0.5 INH SOL 3 ML VIAL.NEB. NEB SCH ×4 (07:23→20:18)
[2021-07-31] MEDS ORDERED: DEXTROSE 5%-WATER - 50 ML IVPB ONE (09:03)
[2021-07-31] MEDS ORDERED: cefTRIAXone SODIUM 1 GM VIAL ONE (09:03)
[2021-07-31] MEDS: CEFTRIAXONE 1 GM in DEXTROSE 5%-WATER - 50 ML IVPB SCH (09:25)
[2021-07-31] MEDS: ENOXAPARIN NA (PORCINE) 40 MG/0.4 ML DISP.SYRIN SQ SCH (09:25)
[2021-07-31] MEDS: PANTOPRAZOLE 40 MG TABLET PO SCH (09:26)
[2021-07-31] MEDS: ESCITALOPRAM OXALATE 10 MG TABLET PO SCH (09:26)
[2021-07-31] MEDS: CARVEDILOL 3.125 MG TABLET (FP) PO SCH ×2 (09:26→21:12)
[2021-07-31] MEDS: amLODIPine BESYLATE 10 MG TABLET (FP) PO SCH (09:28)
[2021-07-31] MEDS: NALTREXONE HCL 50 MG TABLET PO SCH (09:31)
[2021-07-31 14:07] LABS: SARS-CoV-2 NAA Not Detected (Not Detected)
[2021-07-31] MEDS: ATORVASTATIN CA 10 MG TABLET (FP) PO SCH (21:12)
[2021-08-01] MEDS: methylPREDNISolone NA SUCC 40 MG/1 ML VIAL IVPUSH SCH ×3 (01:08→18:16)
[2021-08-01] MEDS: ALBUTEROL SO4 2.5/IPRATROPIUM 0.5 INH SOL 3 ML VIAL.NEB. NEB SCH ×4 (08:04→20:08)
[2021-08-01] MEDS ORDERED: cefTRIAXone SODIUM 1 GM VIAL ONE (08:32)
[2021-08-01] MEDS ORDERED: DEXTROSE 5%-WATER - 50 ML IVPB ONE (08:33)
[2021-08-01] MEDS: CEFTRIAXONE 1 GM in DEXTROSE 5%-WATER - 50 ML IVPB SCH (09:07)
[2021-08-01] MEDS: CARVEDILOL 3.125 MG TABLET (FP) PO SCH ×2 (09:07→21:32)
[2021-08-01] MEDS: ENOXAPARIN NA (PORCINE) 40 MG/0.4 ML DISP.SYRIN SQ SCH (09:07)
[2021-08-01] MEDS: NALTREXONE HCL 50 MG TABLET PO SCH (09:07)
[2021-08-01] MEDS: ESCITALOPRAM OXALATE 10 MG TABLET PO SCH (09:07)
[2021-08-01] MEDS: PANTOPRAZOLE 40 MG TABLET PO SCH (09:07)
[2021-08-01] MEDS: amLODIPine BESYLATE 10 MG TABLET (FP) PO SCH (09:08)
[2021-08-01] MEDS ORDERED: ACETAMINOPHEN 325 MG TABLET (FP) PO PRN (14:15)
[2021-08-01] MEDS: ATORVASTATIN CA 10 MG TABLET (FP) PO SCH (21:32)
[2021-08-02] MEDS: methylPREDNISolone NA SUCC 40 MG/1 ML VIAL IVPUSH SCH ×3 (02:32→17:00)
[2021-08-02 07:29] LABS: HEMATOCRIT 45.7 % (35.4-49); HEMOGLOBIN 15.7 GM/dL (11.7-16.9); MCH 30.6 pg (25.7-33.7); MCHC 34.3 g/dl (32.0-35.9); MEAN CELL VOLUME 89.1 fl (80-96); MEAN PLT VOLUME 9.3 fl (7.5-11.1); MONO % 5.3 % (3.8-10.2); NEUT % 86.7 % (42.8-82.8); PLATELET COUNT 137 10^3/uL (134-434); RBC 5.13 M/mm3 (4.00-5.60); RDW 14.4 % (11.9-15.9); WHITE BLOOD COUNT 7.6 K/mm3 (4.0-10.0)
[2021-08-02] MEDS: ALBUTEROL SO4 2.5/IPRATROPIUM 0.5 INH SOL 3 ML VIAL.NEB. NEB SCH ×4 (07:35→20:00)
[2021-08-02 08:15] LABS: ALBUMIN 3.6 g/dl (3.4-5.0); BLOOD UREA NITROGEN 18.7 mg/dL (7-18); CREATININE 0.9 mg/dL (0.55-1.3)
[2021-08-02 08:16] LABS: BILIRUBIN,TOTAL 0.8 mg/dL (0.2-1); TOT PROT 6.6 g/dl (6.4-8.2)
[2021-08-02 08:20] LABS: CALCIUM 8.4 mg/dL (8.5-10.1); MAGNESIUM 2.7 mg/dL (1.8-2.4)
[2021-08-02] MEDS ORDERED: DEXTROSE 5%-WATER - 50 ML IVPB ONE (08:45)
[2021-08-02] MEDS ORDERED: cefTRIAXone SODIUM 1 GM VIAL ONE (08:45)
[2021-08-02] MEDS: ENOXAPARIN NA (PORCINE) 40 MG/0.4 ML DISP.SYRIN SQ SCH (09:49)
[2021-08-02] MEDS: CARVEDILOL 3.125 MG TABLET (FP) PO SCH ×2 (09:52→21:56)
[2021-08-02] MEDS: NALTREXONE HCL 50 MG TABLET PO SCH (09:52)
[2021-08-02] MEDS: PANTOPRAZOLE 40 MG TABLET PO SCH (09:52)
[2021-08-02] MEDS: ESCITALOPRAM OXALATE 10 MG TABLET PO SCH (09:52)
[2021-08-02] MEDS: CEFTRIAXONE 1 GM in DEXTROSE 5%-WATER - 50 ML IVPB SCH (09:53)
[2021-08-02] MEDS: amLODIPine BESYLATE 10 MG TABLET (FP) PO SCH (09:53)
[2021-08-02] MEDS: ATORVASTATIN CA 10 MG TABLET (FP) PO SCH (21:56)
[2021-08-03] MEDS: methylPREDNISolone NA SUCC 40 MG/1 ML VIAL IVPUSH SCH ×2 (03:01→10:06)
[2021-08-03 06:44] LABS: ALBUMIN 3.4 g/dl (3.4-5.0); BLOOD UREA NITROGEN 21.6 mg/dL (7-18); CALCIUM 8.5 mg/dL (8.5-10.1); MAGNESIUM 2.8 mg/dL (1.8-2.4)
[2021-08-03 06:47] LABS: CREATININE 0.9 mg/dL (0.55-1.3)
[2021-08-03 06:49] LABS: BILIRUBIN,TOTAL 0.7 mg/dL (0.2-1); TOT PROT 5.8 g/dl (6.4-8.2)
[2021-08-03 06:59] LABS: BASO % 0.1 % (0-2.0); HEMATOCRIT 43.4 % (35.4-49); LYMPH % 7.3 % (8-40); MCH 30.8 pg (25.7-33.7); MCHC 34.6 g/dl (32.0-35.9); MEAN CELL VOLUME 89.1 fl (80-96); MEAN PLT VOLUME 9.9 fl (7.5-11.1); MONO % 7.3 % (3.8-10.2); NEUT % 85.3 % (42.8-82.8); PLATELET COUNT 123 10^3/uL (134-434); RBC 4.86 M/mm3 (4.00-5.60); RDW 14.4 % (11.9-15.9); WHITE BLOOD COUNT 6.9 K/mm3 (4.0-10.0)
[2021-08-03] MEDS: ALBUTEROL SO4 2.5/IPRATROPIUM 0.5 INH SOL 3 ML VIAL.NEB. NEB SCH ×4 (08:21→20:38)
[2021-08-03] MEDS ORDERED: cefTRIAXone SODIUM 1 GM VIAL ONE (09:57)
[2021-08-03] MEDS ORDERED: DEXTROSE 5%-WATER - 50 ML IVPB ONE (09:58)
[2021-08-03] MEDS: CARVEDILOL 3.125 MG TABLET (FP) PO SCH (10:04)
[2021-08-03] MEDS: amLODIPine BESYLATE 10 MG TABLET (FP) PO SCH (10:04)
[2021-08-03] MEDS: NALTREXONE HCL 50 MG TABLET PO SCH (10:04)
[2021-08-03] MEDS: PANTOPRAZOLE 40 MG TABLET PO SCH (10:04)
[2021-08-03] MEDS: ESCITALOPRAM OXALATE 10 MG TABLET PO SCH (10:04)
[2021-08-03] MEDS: CEFTRIAXONE 1 GM in DEXTROSE 5%-WATER - 50 ML IVPB SCH (10:05)
[2021-08-03] MEDS: ENOXAPARIN NA (PORCINE) 40 MG/0.4 ML DISP.SYRIN SQ SCH (10:06)
[2021-08-03] MEDS ORDERED: predniSONE 20 MG TABLET (UD) PO SCH (10:45)
[2021-08-03 14:22] VITALS: BP 136/92; PULSE 69; TEMP 97.6
== END 2021-08-03 18:00 | disposition home or self-care (01) | DRG 140 ==
LOC: JER 10:17 → JERBED 12:21 → J7W 14:53
PROVIDERS: ADMIT Internal Medicine; ATTEND Nurse Practitioner Family
DX: J43.9 Emphysema, unspecified (principal); I10 Essential (primary) hypertension; E78.5 Hyperlipidemia, unspecified; F17.210 Nicotine dependence, cigarettes, uncomplicated; F41.8 Other specified anxiety disorders
CPT/HCPCS: 36415; 71045-TC-FY; 71250-TC; 80053; 83735; 83880; 84443; 84484; 85025; 93005; 93010; 93306-TC; 94010; 94640; 94761; 99285-25; C9803-CS; U0003; U0005